=== PATIENT | female | born 1965 | race Caucasian/White ===

== ENCOUNTER 2018-10-11 20:12 | Emergency (ER) | payer MEDICARE, MEDICAID ==
[2018-10-11] MEDS ORDERED: Ondansetron 4 MG/2 ML SDV IVPUSH ONE (21:12)
[2018-10-11] MEDS ORDERED: Famotidine/Normal Saline 20 MG in Premix Bag 1 BAG IV ONE (21:12)
--- NOTE | 2018-10-11 21:14 | EDM.PDOC ---
ED HPI GENERAL MEDICAL PROBLEM - General Chief Complaint: Abdominal Pain Stated Complaint: STOMACH PAIN Time Seen by Provider: 10/11/18 21:14 Source of Information: Reports: Patient, Old Records History Limitations: Reports: No Limitations - History of Present Illness INITIAL COMMENTS - FREE TEXT/NARRATIVE: Patient presents today with concern for acute onset upper abdominal pain which started between 7 and 7:30 this evening. She is very concerned because she has a history of a bowel obstruction in February. She states that she was feeling just fine all of the rest of today, but did have some vomiting this evening shortly after arrival. She had a normal bowel movement 2 today, second one may be slightly looser than usual. She tried taking Maalox at home with no improvement. She had spaghetti and salad for supper which she made herself and her partner is not sick. No other recent food exposures. She denies fever, chills or sweats, heart racing or skipping beats, shortness of breath, change in urination, burning with urination, frequency or urgency, numbness or tingling in her hands or feet, feeling lightheaded or dizzy. She has a history of previous abdominal surgeries including cholecystectomy, appendectomy, hysterectomy, and umbilical hernia repair with mesh. Middle Abdomen Pain Score (Numeric/FACES): 10 - Related Data Allergies Allergy/AdvReac Type Severity Reaction Status Date / Time acetaminophen Allergy Cannot Verified 03/31/18 13:07 [From Darvocet-N 100] Remember amoxicillin trihydrate Allergy Vaginitis Verified 03/31/18 13:07 [From Augmentin] codeine Allergy Airway Verified 03/31/18 13:07 Tightness doxycycline Allergy Nausea and Verified 03/31/18 13:07 Vomiting furosemide [From Lasix] Allergy Rash Verified 03/31/18 13:07 ibuprofen Allergy Vomiting Verified 03/31/18 13:07 ketorolac [From Toradol] Allergy Rash Verified 03/31/18 13:07 latex Allergy Cannot Verified 03/31/18 13:07 Remember metoclopramide HCl Allergy Tachycardia Verified 03/31/18 13:07 [From Reglan] morphine Allergy Rash Verified 03/31/18 13:07 oxycodone [Oxycodone] Allergy Airway Verified 03/31/18 13:07 Tightness oxycodone HCl [From Percocet] Allergy Cannot Verified 03/31/18 13:07 Remember potassium chloride Allergy Vaginitis Verified 03/31/18 13:07 potassium clavulanate Allergy Vaginitis Verified 03/31/18 13:07 [From Augmentin] propoxyphene Allergy Nausea and Verified 03/31/18 13:07 [From Darvocet-N 100] Vomiting propoxyphene napsylate Allergy Cannot Verified 03/31/18 13:07 [From Darvocet-N 100] Remember Sulfa (Sulfonamide Allergy Rash Verified 03/31/18 13:07 Antibiotics) sulfamethoxazole Allergy Vaginitis Verified 03/31/18 13:07 [From Bactrim] sumatriptan [From Imitrex] Allergy Nausea and Verified 03/31/18 13:07 Vomiting sumatriptan succinate Allergy Nausea and Verified 03/31/18 13:07 [From Imitrex] Vomiting topiramate Allergy Cannot Verified 03/31/18 13:07 Remember tramadol Allergy Rash Verified 03/31/18 13:07 trimethoprim [From Bactrim] Allergy Vaginitis Verified 03/31/18 13:07 Home Meds: Home Meds Multivitamin [Multivitamins] 1 each PO BEDTIME 11/08/12 [History] Escitalopram [Lexapro] 10 mg PO Q48H 03/01/14 [History] Meperidine HCl [Demerol] 50 mg PO Q6H PRN 10/01/14 [History] Famotidine [Pepcid] 20 mg PO BID #30 tablet 03/02/18 [Rx] Azithromycin [Zithromax] 250 mg PO ASDIRECTED #6 tab 03/31/18 [Rx] Past Medical History HEENT History: Reports: Hard of Hearing, Other (See Below) Other HEENT History: deaf. Hearing aid to the right ear Gastrointestinal History: Reports: Bowel Obstruction, Gastritis, Other (See Below) Other Gastrointestinal History: upper abd pain. Other Genitourinary History: PT HAD BLADDER TIED (SECURED) POST HYSTERECTOMY HAND MODEL History: Reports: Musculoskeletal History: Reports: Other (See Below) Other Musculoskeletal History: HAS BEEN IN wheelchair in past / both knees repaired and doing well at this time Neurological History: Reports: Migraines Psychiatric History: Reports: Anxiety, Depression - Infectious Disease History Infectious Disease History: Reports: Chicken Pox, Measles, Mumps - Past Surgical History HEENT Surgical History: Reports: Oral Surgery GI Surgical History: Reports: Appendectomy, Cholecystectomy, Hernia Repair/Other Female Surgical History: Reports: Hysterectomy Musculoskeletal Surgical History: Reports: Arthroscopic Knee, Knee Replacement, Shoulder Surgery Social & Family History - Family History Family Medical History: Noncontributory - Tobacco Use Smoking Status *Q: Never Smoker - Caffeine Use Caffeine Use: Reports: Coffee Caffeine Use Comment: Didn't ask - Alcohol Use Alcohol Use History: No - Recreational Drug Use Recreational Drug Use: No - Living Situation & Occupation Living situation: Reports: Occupation: Disabled ED ROS GENERAL - Review of Systems Review Of Systems: ROS reveals no pertinent complaints other than HPI. ED EXAM, GENERAL - Physical Exam Exam: See Below Free Text/Narrative:: General: Alert, very pleasant no acute distress. Pupils are equal and reactive. Throat is without erythema, mucous members are moist. Neck is supple and there is no cervical adenopathy. Heart is regular rate and rhythm, lungs are clear throughout with no wheezes or crackles. Abdomen positive bowel sounds, soft, no rebound or guarding. Nontender with firm auscultation but complains of pain with palpation. Significant difference in exam when she is distracted and I do not feel any rigidity or rebound. Peripheral pulses +2 in both the upper and lower extremities, there is no lower extremity edema. Skin has no abnormal lesions or rashes. Strength is equal side to side and gait is normal. Course - Vital Signs Text/Narrative:: initial impression - viral gastroenteritis vs possible early obstruction, very benign abdominal exam. labs ordered, will start some IVF. No urine symptoms, no other complaints Last Recorded V/S: Last Vital Signs Temp 36.6 C 10/11/18 20:17 Pulse 98 10/11/18 20:17 Resp 18 10/11/18 20:17 BP 119/88 10/11/18 20:17 Pulse Ox 100 10/11/18 20:17 - Orders/Labs/Meds Orders: Active Orders 24 hr Category Date Time Status Abdomen 1V Upright [CR] Stat Exams 10/12/18 00:07 Taken Sodium Chloride 0.9% [Normal Saline] 1,000 ml Med 10/11/18 21:15 Active IV ASDIRECTED Sodium Chloride 0.9% [Saline Flush] Med 10/11/18 21:54 Active 10 ml FLUSH ACLUNCH PRN Medication Orders Sodium Chloride (Normal Saline) 1,000 mls @ 500 mls/hr IV ASDIRECTED LETICIA Last Admin: 10/11/18 21:45 Dose: 500 mls/hr Sodium Chloride (Saline Flush) 10 ml FLUSH ACLUNCH PRN PRN Reason: Keep Vein Open Last Admin: 10/11/18 22:11 Dose: 10 ml Labs: Laboratory Tests 10/11/18 10/11/18 10/11/18 Range/Units 20:45 21:26 21:26 WBC 10.8 (4.5-12.0) X10-3/uL RBC 4.55 (3.23-5.20) x10(6)uL Hgb 14.0 (11.5-15.5) g/dL Hct 42.1 (30.0-51.3) % MCV 92.4 (80-96) fL MCH 30.8 (27.7-33.6) pg MCHC 33.4 (32.2-35.4) g/dL RDW 11.6 (11.5-15.5) % Plt Count 313 (125-369) X10(3)uL MPV 8.5 (7.4-10.4) fL Neut % (Auto) 70.6 (46-82) % Lymph % (Auto) 21.3 (13-37) % [place] % (Auto) 5.6 (4-12) % Eos % (Auto) 2 (1.0-5.0) % Baso % (Auto) 1 (0-2) % Neut # (Auto) 7.6 (1.6-8.3) # Lymph # (Auto) 2.3 (0.6-5.0) # [place] # (Auto) 0.6 (0.0-1.3) # Eos # (Auto) 0.2 (0.0-0.8) # Baso # (Auto) 0.1 (0.0-0.2) # Sodium 142 (135-145) mmol/L Potassium 3.9 (3.5-5.3) mmol/L Chloride 104 D (100-110) mmol/L Carbon Dioxide 30 (21-32) mmol/L BUN 12 (7-18) mg/dL Creatinine 0.7 (0.55-1.02) mg/dL Est Cr Clr Drug Dosing 72.66 mL/min Estimated GFR (MDRD) > 60 (>60) BUN/Creatinine Ratio 17.1 (9-20) Glucose 115 (80-116) mg/dL Lactic Acid (0.4-2.2) mmol/L Calcium 10.0 (8.6-10.2) mg/dL Magnesium 1.9 (1.8-2.5) mg/dL Total Bilirubin 0.4 (0.1-1.3) mg/dL AST 16 (5-25) IU/L ALT 22 (12-36) U/L Alkaline Phosphatase 78 (56-112) IU/L Total Protein 7.3 (6.0-8.0) g/dL Albumin 4.0 (3.5-5.2) g/dL Globulin 3.3 g/dL Albumin/Globulin Ratio 1.2 Amylase 78 (25-115) U/L Urine Color Yellow (YELLOW) Urine Appearance Clear (CLEAR) Urine pH 8.0 H (5.0-6.5) Ur Specific [place] 1.015 (1.010-1.025) Urine Protein Negative (NEGATIVE) mg/dL Urine Glucose (UA) Normal (NORMAL) mg/dL Urine Ketones Negative (NEGATIVE) mg/dL Urine Occult Blood Negative (NEGATIVE) Urine Nitrite Negative (NEGATIVE) Urine Bilirubin Negative (NEGATIVE) Urine Urobilinogen Normal (NEGATIVE) mg/dL Ur Leukocyte Esterase Negative (NEGATIVE) Urine RBC 0-5 (0-5) Urine WBC 0-5 (0-5) Ur Squamous Epith Cells Few H (NS,R,O) Urine Bacteria Few H (NS) Urine Mucus Few H (NS) 10/11/18 Range/Units 21:26 WBC (4.5-12.0) X10-3/uL RBC (3.23-5.20) x10(6)uL Hgb (11.5-15.5) g/dL Hct (30.0-51.3) % MCV (80-96) fL MCH (27.7-33.6) pg MCHC (32.2-35.4) g/dL RDW (11.5-15.5) % Plt Count (125-369) X10(3)uL MPV (7.4-10.4) fL Neut % (Auto) (46-82) % Lymph % (Auto) (13-37) % [place] % (Auto) (4-12) % Eos % (Auto) (1.0-5.0) % Baso % (Auto) (0-2) % Neut # (Auto) (1.6-8.3) # Lymph # (Auto) (0.6-5.0) # [place] # (Auto) (0.0-1.3) # Eos # (Auto) (0.0-0.8) # Baso # (Auto) (0.0-0.2) # Sodium (135-145) mmol/L Potassium (3.5-5.3) mmol/L Chloride (100-110) mmol/L Carbon Dioxide (21-32) mmol/L BUN (7-18) mg/dL Creatinine (0.55-1.02) mg/dL Est Cr Clr Drug Dosing mL/min Estimated GFR (MDRD) (>60) BUN/Creatinine Ratio (9-20) Glucose (80-116) mg/dL Lactic Acid 1.4 (0.4-2.2) mmol/L Calcium (8.6-10.2) mg/dL Magnesium (1.8-2.5) mg/dL Total Bilirubin (0.1-1.3) mg/dL AST (5-25) IU/L ALT (12-36) U/L Alkaline Phosphatase (56-112) IU/L Total Protein (6.0-8.0) g/dL Albumin (3.5-5.2) g/dL Globulin g/dL Albumin/Globulin Ratio Amylase (25-115) U/L Urine Color (YELLOW) Urine Appearance (CLEAR) Urine pH (5.0-6.5) Ur Specific [place] (1.010-1.025) Urine Protein (NEGATIVE) mg/dL Urine Glucose (UA) (NORMAL) mg/dL Urine Ketones (NEGATIVE) mg/dL Urine Occult Blood (NEGATIVE) Urine Nitrite (NEGATIVE) Urine Bilirubin (NEGATIVE) Urine Urobilinogen (NEGATIVE) mg/dL Ur Leukocyte Esterase (NEGATIVE) Urine RBC (0-5) Urine WBC (0-5) Ur Squamous Epith Cells (NS,R,O) Urine Bacteria (NS) Urine Mucus (NS) Meds: Medications Generic Name Dose Route Start Last Admin Trade Name Freq PRN Reason Stop Dose Admin Sodium Chloride 1,000 mls @ 500 mls/hr 10/11/18 21:15 10/11/18 21:45 Normal Saline IV 500 mls/hr ASDIRECTED LETICIA Administration Sodium Chloride 10 ml 10/11/18 21:54 10/11/18 22:11 Saline Flush FLUSH 10 ml ACLUNCH PRN Administration Keep Vein Open Discontinued Medications Generic Name Dose Route Start Last Admin Trade Name Steven PRN Reason Stop Dose Admin Famotidine 20 mg/ Premix 50 mls @ 200 mls/hr 10/11/18 21:12 10/11/18 22:04 IV 10/11/18 21:13 200 mls/hr ONETIME ONE Administration Ondansetron HCl 4 mg 10/11/18 21:12 10/11/18 22:04 Zofran IVPUSH 10/11/18 21:13 4 mg ONETIME ONE Administration - Re-Assessments/Exams Free Text/Narrative Re-Assessment/Exam: 10/12/18 2245 labs reviewed and all negative. Patient still c/o pain but asked for something to drink -- will try some ice water repeat abdominal exam - very soft, basically nontender when distracted, normal bowel sounds. Medical records reviewed, patient was admitted in February with concerns for partial small bowel obstruction, however it spontaneously resolved and was followed by surgery who notes that it may have actually been partially symptoms from gastroenteritis. She does have a history of previous abdominal surgeries including a an umbilical hernia repair, laparoscopic cholecystectomy, hysterectomy. Free Text/Narrative Re-Assessment/Exam: 10/12/18 2330 IV infiltrated, will stop as patient does not appear dehydrated repeat exam - still soft, nontender if distracted, very much complains of pain if attention is on exam. Also able to sit up without difficulty discussed possible imaging - will get KUB Free Text/Narrative Re-Assessment/Exam: 10/12/18 01:00 KUB does not show obstructive gas pattern. Patient had complained again of pain , but is sitting up in bed, talking, grimaces when lies down, but then able to do partial situp without any difficulty. Abdomen still completely soft. No hernia palpable around surgical scar. no additional vomiting, has tolerated water and ice. Discussed discharge home and s/s for return to ER if worsens. She states she also still has some demerol at home and could try that. see discharge instructions Departure - Departure Time of Disposition: 01:03 Disposition: Home, Self-Care 01 Condition: Good Clinical Impression: Gastroenteritis, Vomiting, Diarrhea - Discharge Information *PRESCRIPTION DRUG MONITORING PROGRAM REVIEWED*: Yes *COPY OF PRESCRIPTION DRUG MONITORING REPORT IN PATIENT RUBENS: No Referrals: Jake Beatty MD [Primary Care Provider] - Forms: ED Department Discharge Additional Instructions: rest and gentle activity (walking) tomorrow recommend clear liquid diet tomorrow, if you get hungry you may try something more solid but still very gentle on stomach such as banana or rice can use pain meds as prescribed, tylenol, or warm pack if worsening pain, ongoing vomiting, feeling lightheaded or like you might pass out when you stand up, then see physician - My Orders Last 24 Hours: My Active Orders 10/11/18 21:15 Sodium Chloride 0.9% [Normal Saline] 1,000 ml IV ASDIRECTED 10/11/18 21:54 Sodium Chloride 0.9% [Saline Flush] 10 ml FLUSH ACLUNCH PRN 10/12/18 00:07 Abdomen 1V Upright [CR] Stat - Assessment/Plan Last 24 Hours: My Active Orders 10/11/18 21:15 Sodium Chloride 0.9% [Normal Saline] 1,000 ml IV ASDIRECTED 10/11/18 21:54 Sodium Chloride 0.9% [Saline Flush] 10 ml FLUSH ACLUNCH PRN 10/12/18 00:07 Abdomen 1V Upright [CR] Stat
[2018-10-11] MEDS ORDERED: Sodium Chloride 0.9% 1,000 ML IV SCH (21:15)
[2018-10-11] MEDS ORDERED: Sodium Chloride 0.9% 10 ML Syringe FLUSH PRN (21:54)
[2018-10-12 03:20] VITALS: BP 108/56; PULSE 88
--- NOTE | 2018-10-14 11:43 | CR ---
INDICATION: Question bowel obstruction. ABDOMEN: Two upright views of the abdomen were obtained 10/12/18 and compared with 02/28/18, revealing evidence of previous cholecystectomy with clips in the area of the cystic duct. Evidence of previous hernia surgery is noted in the lower middle abdomen. The pattern of gas and feces is nonspecific without evidence of free air or obstruction. No organomegaly, mass lesions, or nonvascular pathologic calcifications were identified. Nasogastric tube is no longer present - no overlying tubes are seen at this time. IMPRESSION: Nonacute postsurgical abdomen. MTDD
== END 2018-10-12 01:10 | disposition home or self-care (01) ==
LOC: FB.ED 20:12
DX: K52.9 Noninfective gastroenteritis and colitis, unspecified (principal); F41.9 Anxiety disorder, unspecified; F32.9 Major depressive disorder, single episode, unspecified; Z91.040 Latex allergy status; Z88.8 Allergy status to other drugs, medicaments and biological substances; Z88.2 Allergy status to sulfonamides; Z88.5 Allergy status to narcotic agent; Z88.6 Allergy status to analgesic agent; Z79.899 Other long term (current) drug therapy; Z90.49 Acquired absence of other specified parts of digestive tract; Z90.710 Acquired absence of both cervix and uterus; Z88.1 Allergy status to other antibiotic agents
CPT/HCPCS: 36415; 74018; 80053; 81001; 82150; 83605; 83735; 85025; 96365; 96375; 99284; J2405; J7030; 99283

== ENCOUNTER 2019-11-11 04:24 | Emergency (ER) | payer MEDICARE, MEDICAID ==
[2019-11-11] MEDS ORDERED: hydrOXYzine HCl 50 MG/ML SDV IM ONE (04:41)
[2019-11-11] MEDS ORDERED: Diazepam 5 MG Tab PO ONE (05:13)
[2019-11-11] MEDS ORDERED: Zolpidem 10 MG Tab PO ONE (05:13)
--- NOTE | 2019-11-11 05:21 | EDM.PDOC ---
ED HPI GENERAL MEDICAL PROBLEM - General Chief Complaint: General Stated Complaint: Anxiety, Chest Tightness Time Seen by Provider: 11/11/19 04:45 Source of Information: Reports: Patient History Limitations: Reports: No Limitations - History of Present Illness INITIAL COMMENTS - FREE TEXT/NARRATIVE: Patient presented to the ED because of insomnia, anxiety, and chest tightness. She said 2 of her sisters have cancer and she is under a lot of stress. - Related Data Allergies Allergy/AdvReac Type Severity Reaction Status Date / Time acetaminophen Allergy Cannot Verified 11/11/19 05:09 [From Darvocet-N 100] Remember amoxicillin trihydrate Allergy Vaginitis Verified 11/11/19 05:09 [From Augmentin] codeine Allergy Airway Verified 11/11/19 05:09 Tightness doxycycline Allergy Nausea and Verified 11/11/19 05:09 Vomiting furosemide [From Lasix] Allergy Rash Verified 11/11/19 05:09 ibuprofen Allergy Vomiting Verified 11/11/19 05:09 ketorolac [From Toradol] Allergy Rash Verified 11/11/19 05:09 latex Allergy Cannot Verified 11/11/19 05:09 Remember metoclopramide HCl Allergy Tachycardia Verified 11/11/19 05:09 [From Reglan] morphine Allergy Rash Verified 11/11/19 05:09 oxycodone [Oxycodone] Allergy Airway Verified 11/11/19 05:09 Tightness oxycodone HCl [From Percocet] Allergy Cannot Verified 11/11/19 05:09 Remember potassium chloride Allergy Vaginitis Verified 11/11/19 05:09 potassium clavulanate Allergy Vaginitis Verified 11/11/19 05:09 [From Augmentin] propoxyphene Allergy Nausea and Verified 11/11/19 05:09 [From Darvocet-N 100] Vomiting propoxyphene napsylate Allergy Cannot Verified 11/11/19 05:09 [From Darvocet-N 100] Remember Sulfa (Sulfonamide Allergy Rash Verified 11/11/19 05:09 Antibiotics) sulfamethoxazole Allergy Vaginitis Verified 11/11/19 05:09 [From Bactrim] sumatriptan [From Imitrex] Allergy Nausea and Verified 11/11/19 05:09 Vomiting sumatriptan succinate Allergy Nausea and Verified 11/11/19 05:09 [From Imitrex] Vomiting topiramate Allergy Cannot Verified 11/11/19 05:09 Remember tramadol Allergy Rash Verified 11/11/19 05:09 trimethoprim [From Bactrim] Allergy Vaginitis Verified 11/11/19 05:09 Home Meds: Home Meds Multivitamin [Multivitamins] 1 each PO BEDTIME 11/08/12 [History] Escitalopram [Lexapro] 5 mg PO Q48H 03/01/14 [History] Omeprazole 20 mg PO DAILY 11/11/19 [History] Zolpidem [Ambien] 5 mg PO BEDTIME PRN #10 tab 11/11/19 [Rx] atorvaSTATin [Lipitor] 10 mg PO DAILY 11/11/19 [History] Past Medical History HEENT History: Reports: Hard of Hearing, Other (See Below) Other HEENT History: deaf. Hearing aid to the right ear Gastrointestinal History: Reports: Bowel Obstruction, Gastritis, Other (See Below) Other Gastrointestinal History: upper abd pain. Other Genitourinary History: PT HAD BLADDER TIED (SECURED) POST HYSTERECTOMY MANAGER INVESTIGATIONS History: Reports: Musculoskeletal History: Reports: Other (See Below) Other Musculoskeletal History: HAS BEEN IN wheelchair in past / both knees repaired and doing well at this time Neurological History: Reports: Migraines Psychiatric History: Reports: Anxiety, Depression - Infectious Disease History Infectious Disease History: Reports: Chicken Pox, Measles, Mumps - Past Surgical History HEENT Surgical History: Reports: Oral Surgery GI Surgical History: Reports: Appendectomy, Cholecystectomy, Hernia Repair/Other Female Surgical History: Reports: Hysterectomy Musculoskeletal Surgical History: Reports: Arthroscopic Knee, Knee Replacement, Shoulder Surgery Social & Family History - Family History Family Medical History: Noncontributory - Caffeine Use Caffeine Use: Reports: Coffee Caffeine Use Comment: Didn't ask - Living Situation & Occupation Living situation: Reports: Occupation: Disabled ED ROS GENERAL - Review of Systems Review Of Systems: See Below Constitutional: Reports: No Symptoms HEENT: Reports: No Symptoms Respiratory: Reports: No Symptoms Cardiovascular: Reports: Chest Pain Endocrine: Reports: No Symptoms GI/Abdominal: Reports: No Symptoms : Reports: No Symptoms Musculoskeletal: Reports: No Symptoms Skin: Reports: No Symptoms Psychiatric: Reports: Anxiety Hematologic/Lymphatic: Reports: No Symptoms Immunologic: Reports: No Symptoms ED EXAM, GENERAL - Physical Exam Exam: See Below Exam Limited By: No Limitations General Appearance: Alert, No Apparent Distress Ears: Normal External Exam, Normal Canal, Hearing Grossly Normal Nose: Normal Inspection, Normal Mucosa Throat/Mouth: Normal Inspection, Normal Lips Head: Atraumatic, Normocephalic Neck: Normal Inspection, Supple, Non-Tender, Full Range of Motion Respiratory/Chest: No Respiratory Distress, Lungs Clear, Normal Breath Sounds Cardiovascular: Normal Peripheral Pulses, Regular Rate, Rhythm GI/Abdominal: Normal Bowel Sounds, Soft, Non-Tender, No Organomegaly Back Exam: Normal Inspection, Full Range of Motion Course - Vital Signs Text/Narrative:: EKG-NSR w/some PVC's Valium 5 mg PO x1 Zolpidem 5 mg po x1 Last Recorded V/S: Last Vital Signs Temp 36.6 C 11/11/19 04:35 Pulse 54 L 11/11/19 04:35 Resp 18 11/11/19 04:35 BP 123/69 11/11/19 04:35 Pulse Ox 100 11/11/19 04:35 - Orders/Labs/Meds Orders: Active Orders 24 hr Category Date Time Status EKG Documentation Completion [RC] ASDIRECTED Care 11/11/19 05:16 Ordered EKG 12 Lead [EK] Routine Ther 11/11/19 05:15 Ordered Meds: Medications Discontinued Medications Generic Name Dose Route Start Last Admin Trade Name Steven PRN Reason Stop Dose Admin Diazepam 5 mg 11/11/19 05:13 Valium. PO 11/11/19 05:14 ONETIME ONE Hydroxyzine HCl 50 mg 11/11/19 04:41 11/11/19 04:45 Vistaril IM 11/11/19 04:42 50 mg ONETIME ONE Administration Zolpidem Tartrate 5 mg 11/11/19 05:13 Ambien PO 11/11/19 05:14 ONETIME ONE Departure - Departure Time of Disposition: 05:30 Disposition: Home, Self-Care 01 Condition: Good (anxiety reac) Clinical Impression: Anxiety in acute stress reaction, Insomnia - Discharge Information Prescriptions: Zolpidem [Ambien] 5 mg PO BEDTIME PRN #10 tab PRN Reason: Sleep Referrals: Jake Beatty MD [Primary Care Provider] - Forms: ED Department Discharge Additional Instructions: Please read discharge instructions on anxiety and insomnia Take Zolpidem 5 mg at bet dime as needed for sleep Vistaril 50 mg every 8 hours as needed for anxiety. Follow up as needed Sepsis Event Note (ED) - Evaluation Sepsis Screening Result: No Definite Risk - Focused Exam Vital Signs: Vital Signs Temp Pulse Resp BP Pulse Ox 11/11/19 04:35 36.6 C 54 L 18 123/69 100 - My Orders Last 24 Hours: My Active Orders 11/11/19 05:15 EKG 12 Lead [EK] Routine 11/11/19 05:16 EKG Documentation Completion [RC] ASDIRECTED - Assessment/Plan Last 24 Hours: My Active Orders 11/11/19 05:15 EKG 12 Lead [EK] Routine 11/11/19 05:16 EKG Documentation Completion [RC] ASDIRECTED
[2019-11-11 07:48] VITALS: BP 120/76; PULSE 84
== END 2019-11-11 05:55 | disposition home or self-care (01) ==
LOC: FB.ED 04:24
DX: F41.1 Generalized anxiety disorder (principal); F43.0 Acute stress reaction; G47.00 Insomnia, unspecified; F32.9 Major depressive disorder, single episode, unspecified; Z88.5 Allergy status to narcotic agent; Z88.1 Allergy status to other antibiotic agents; Z88.8 Allergy status to other drugs, medicaments and biological substances; Z91.040 Latex allergy status; Z88.2 Allergy status to sulfonamides; Z79.899 Other long term (current) drug therapy
CPT/HCPCS: 93005; 96372; 99284; A9270; J3410

== ENCOUNTER 2020-01-18 17:29 | Emergency (ER) | payer MEDICARE, MEDICAID ==
--- NOTE | 2020-01-18 17:55 | EDM.PDOC ---
ED HPI GENERAL MEDICAL PROBLEM - General Stated Complaint: CUT A FINGER ON RT HAND Time Seen by Provider: 01/18/20 17:35 Source of Information: Reports: Patient History Limitations: Reports: No Limitations - History of Present Illness INITIAL COMMENTS - FREE TEXT/NARRATIVE: c/o finger lac cut on fingerpad of R index finger last Td 2016 here with not working, says she does not type - Related Data Allergies Allergy/AdvReac Type Severity Reaction Status Date / Time acetaminophen Allergy Cannot Verified 11/11/19 05:09 [From Darvocet-N 100] Remember amoxicillin trihydrate Allergy Vaginitis Verified 11/11/19 05:09 [From Augmentin] codeine Allergy Airway Verified 11/11/19 05:09 Tightness doxycycline Allergy Nausea and Verified 11/11/19 05:09 Vomiting furosemide [From Lasix] Allergy Rash Verified 11/11/19 05:09 ibuprofen Allergy Vomiting Verified 11/11/19 05:09 ketorolac [From Toradol] Allergy Rash Verified 11/11/19 05:09 latex Allergy Cannot Verified 11/11/19 05:09 Remember metoclopramide HCl Allergy Tachycardia Verified 11/11/19 05:09 [From Reglan] morphine Allergy Rash Verified 11/11/19 05:09 oxycodone [Oxycodone] Allergy Airway Verified 11/11/19 05:09 Tightness oxycodone HCl [From Percocet] Allergy Cannot Verified 11/11/19 05:09 Remember potassium chloride Allergy Vaginitis Verified 11/11/19 05:09 potassium clavulanate Allergy Vaginitis Verified 11/11/19 05:09 [From Augmentin] propoxyphene Allergy Nausea and Verified 11/11/19 05:09 [From Darvocet-N 100] Vomiting propoxyphene napsylate Allergy Cannot Verified 11/11/19 05:09 [From Darvocet-N 100] Remember Sulfa (Sulfonamide Allergy Rash Verified 11/11/19 05:09 Antibiotics) sulfamethoxazole Allergy Vaginitis Verified 11/11/19 05:09 [From Bactrim] sumatriptan [From Imitrex] Allergy Nausea and Verified 11/11/19 05:09 Vomiting sumatriptan succinate Allergy Nausea and Verified 11/11/19 05:09 [From Imitrex] Vomiting topiramate Allergy Cannot Verified 11/11/19 05:09 Remember tramadol Allergy Rash Verified 11/11/19 05:09 trimethoprim [From Bactrim] Allergy Vaginitis Verified 11/11/19 05:09 Home Meds: Home Meds Multivitamin [Multivitamins] 1 each PO BEDTIME 11/08/12 [History] Escitalopram [Lexapro] 5 mg PO Q48H 03/01/14 [History] Omeprazole 20 mg PO DAILY 11/11/19 [History] Zolpidem [Ambien] 5 mg PO BEDTIME PRN #10 tab 11/11/19 [Rx] atorvaSTATin [Lipitor] 10 mg PO DAILY 11/11/19 [History] hydrOXYzine pamoate [Vistaril] 50 mg PO Q8H #30 cap 11/11/19 [Rx] Past Medical History HEENT History: Reports: Hard of Hearing, Other (See Below) Other HEENT History: deaf. Hearing aid to the right ear Gastrointestinal History: Reports: Bowel Obstruction, Gastritis, Other (See Below) Other Gastrointestinal History: upper abd pain. 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: Musculoskeletal History: Reports: Other (See Below) Other Musculoskeletal History: HAS BEEN IN wheelchair in past / both knees rep aired and doing well at this time Neurological History: Reports: Migraines Psychiatric History: Reports: Anxiety, Depression - Infectious Disease History Infectious Disease History: Reports: Chicken Pox, Measles, Mumps - Past Surgical History HEENT Surgical History: Reports: Oral Surgery GI Surgical History: Reports: Appendectomy, Cholecystectomy, Hernia Repair/Other Female Surgical History: Reports: Hysterectomy Musculoskeletal Surgical History: Reports: Arthroscopic Knee, Knee Replacement, Shoulder Surgery Social & Family History - Family History Family Medical History: No Pertinent Family History - Caffeine Use Caffeine Use: Reports: Coffee Caffeine Use Comment: Didn't ask - Living Situation & Occupation Living situation: Reports: Occupation: Disabled ED ROS GENERAL - Review of Systems Review Of Systems: See Below Constitutional: Reports: No Symptoms HEENT: Reports: No Symptoms Respiratory: Reports: No Symptoms Cardiovascular: Reports: No Symptoms Endocrine: Reports: No Symptoms GI/Abdominal: Reports: No Symptoms : Reports: No Symptoms Musculoskeletal: Reports: No Symptoms Skin: Reports: Wound Neurological: Reports: No Symptoms Psychiatric: Reports: No Symptoms Hematologic/Lymphatic: Reports: No Symptoms Immunologic: Reports: No Symptoms ED EXAM, SKIN/RASH Exam: See Below Exam Limited By: Other (hearing impaired, lip reads well, as does her ) General Appearance: Alert, WD/WN, No Apparent Distress Respiratory/Chest: No Respiratory Distress Cardiovascular: Regular Rate, Rhythm Extremities: Normal Inspection, Normal Range of Motion Neurological: Alert, Oriented, CN II-XII Intact, Normal Cognition, No Motor/Sensory Deficits Skin: Warm, Dry, Other (there is a curviliear L-shaped superficial lac of the fingerpad good apposition of margins on presentation without active bleeding, vertical arm is ~8 mm and horizontal apex is 5 mm, 13 mm total, soaked, direct pressure placed for 5 min, then 1/4" SS x 4 and Bandaid x 2 used to position skin in original position, m/s intact) Course - Re-Assessments/Exams Free Text/Narrative Re-Assessment/Exam: 01/18/20 18:15 last Td 3y ago SS applied without difficulty and without bleeding, should heal well, no fb Departure - Departure Time of Disposition: 18:13 Disposition: Home, Self-Care 01 Condition: Good Clinical Impression: Finger laceration Qualifiers: Encounter type: initial encounter Finger: index finger Damage to nail status: without damage Foreign body presence: without foreign body Laterality: right Qualified Code(s): S61.210A - Laceration without foreign body of right index finger without damage to nail, initial encounter - Discharge Information *PRESCRIPTION DRUG MONITORING PROGRAM REVIEWED*: Not Applicable *COPY OF PRESCRIPTION DRUG MONITORING REPORT IN PATIENT RUBENS: Not Applicable Instructions: Nonsutured Laceration Care Referrals: PCP,None [Primary Care Provider] - Additional Instructions: Keep clean and dry for 5 days. May put a sandwich bag around the finger with a rubber band when taking a shower. Avoid putting pressure on the fingertip for 5 days. May take Aleve one tab tonight as needed for discomfort. Change the outer bandaid in 2-3 days if needed. See your doctor if there are additional questions or concerns.
[2020-01-18 19:40] VITALS: BP 118/82; PULSE 83
== END 2020-01-18 18:34 | disposition home or self-care (01) ==
LOC: FB.ED 17:29
DX: S61.210A Laceration without foreign body of right index finger without damage to nail, initial encounter (principal); F41.9 Anxiety disorder, unspecified; F32.9 Major depressive disorder, single episode, unspecified; Z88.6 Allergy status to analgesic agent; Z88.1 Allergy status to other antibiotic agents; Z88.5 Allergy status to narcotic agent; Z91.040 Latex allergy status; Z88.8 Allergy status to other drugs, medicaments and biological substances; Z88.2 Allergy status to sulfonamides; Z79.899 Other long term (current) drug therapy; W26.9XXA Contact with unspecified sharp object(s), initial encounter
CPT/HCPCS: 99282

== ENCOUNTER 2020-10-23 03:43 | Emergency (ER) | payer MEDICARE, MEDICAID ==
--- NOTE | 2020-10-23 04:07 | EDM.PDOC ---
ED HPI GENERAL MEDICAL PROBLEM - General Stated Complaint: ANXIETY Time Seen by Provider: 10/23/20 04:00 Source of Information: Reports: Patient History Limitations: Reports: No Limitations - History of Present Illness INITIAL COMMENTS - FREE TEXT/NARRATIVE: 55-year-old female who presents to the emergency department complaining of severe anxiety he states that beginning at approximately 8 PM last night begin to feel very uneasy anxious and the symptoms have progressively worsened. She was not able sleep tonight at 1:30 AM she began to feel very anxious and was crying and could not overcome this. The symptoms have persisted and then that caused her to present to the emergency department for evaluation. He does have problems with anxiety and she had surgery on her right shoulder on 09/30/2020 and was placed on a fentanyl patch for pain control. However, the fentanyl patch was discontinued and her last time with it was yesterday during the day. She reports no nausea or vomiting. She has been breathing normally. She had not and taking her anxiety medications because she had been advised not to these medications while she was on the fentanyl patch. She really has no other symptoms besides the severe and crushing anxiety she denies any chest pain. She denies any nausea or vomiting no difficulty breathing. There are no other associated signs or symptoms. There are no other modifying factors. 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: Other (see below) (Nothing) - Related Data Allergies Allergy/AdvReac Type Severity Reaction Status Date / Time acetaminophen Allergy Cannot Verified 01/18/20 20:04 [From Darvocet-N 100] Remember amoxicillin trihydrate Allergy Vaginitis Verified 01/18/20 20:04 [From Augmentin] codeine Allergy Airway Verified 01/18/20 20:04 Tightness doxycycline Allergy Nausea and Verified 01/18/20 20:04 Vomiting furosemide [From Lasix] Allergy Rash Verified 01/18/20 20:04 ibuprofen Allergy Vomiting Verified 01/18/20 20:04 ketorolac [From Toradol] Allergy Rash Verified 01/18/20 20:04 latex Allergy Cannot Verified 01/18/20 20:04 Remember metoclopramide HCl Allergy Tachycardia Verified 01/18/20 20:04 [From Reglan] morphine Allergy Rash Verified 01/18/20 20:04 oxycodone [Oxycodone] Allergy Airway Verified 01/18/20 20:04 Tightness oxycodone HCl [From Percocet] Allergy Cannot Verified 01/18/20 20:04 Remember potassium chloride Allergy Vaginitis Verified 01/18/20 20:04 potassium clavulanate Allergy Vaginitis Verified 01/18/20 20:04 [From Augmentin] propoxyphene Allergy Nausea and Verified 01/18/20 20:04 [From Darvocet-N 100] Vomiting propoxyphene napsylate Allergy Cannot Verified 01/18/20 20:04 [From Darvocet-N 100] Remember Sulfa (Sulfonamide Allergy Rash Verified 01/18/20 20:04 Antibiotics) sulfamethoxazole Allergy Vaginitis Verified 01/18/20 20:04 [From Bactrim] sumatriptan [From Imitrex] Allergy Nausea and Verified 01/18/20 20:04 Vomiting sumatriptan succinate Allergy Nausea and Verified 01/18/20 20:04 [From Imitrex] Vomiting topiramate Allergy Cannot Verified 01/18/20 20:04 Remember tramadol Allergy Rash Verified 01/18/20 20:04 trimethoprim [From Bactrim] Allergy Vaginitis Verified 01/18/20 20:04 Home Meds: Home Meds Multivitamin [Multivitamins] 1 each PO BEDTIME 11/08/12 [History] Escitalopram [Lexapro] 10 mg PO DAILY 03/01/14 [History] Omeprazole 20 mg PO DAILY 11/11/19 [History] Zolpidem [Ambien] 5 mg PO BEDTIME PRN #10 tab 11/11/19 [Rx] atorvaSTATin [Lipitor] 10 mg PO DAILY 11/11/19 [History] hydrOXYzine pamoate [Vistaril] 50 mg PO Q8H #30 cap 11/11/19 [Rx] LORazepam [Lorazepam] 1 mg QID 01/18/20 [History] Past Medical History HEENT History: Reports: Hard of Hearing, Other (See Below) Other HEENT History: deaf. Hearing aid to the right ear Gastrointestinal History: Reports: Bowel Obstruction, Gastritis, Other (See Below) Other Gastrointestinal History: upper abd pain. Other Genitourinary History: PT HAD BLADDER TIED (SECURED) POST HYSTERECTOMY Musculoskeletal History: Reports: Other (See Below) Other Musculoskeletal History: HAS BEEN IN wheelchair in past / both knees repaired and doing well at this time Neurological History: Reports: Migraines Psychiatric History: Reports: Anxiety, Depression, Panic Attack - Infectious Disease History Infectious Disease History: Reports: Chicken Pox, Measles, Mumps - Past Surgical History HEENT Surgical History: Reports: Oral Surgery GI Surgical History: Reports: Appendectomy, Cholecystectomy, Hernia Repair/Other Female Surgical History: Reports: Hysterectomy Musculoskeletal Surgical History: Reports: Arthroscopic Knee, Knee Replacement, Shoulder Surgery Social & Family History - Tobacco Use Tobacco Use Status *Q: Never Tobacco User - Caffeine Use Caffeine Use: Reports: Coffee Caffeine Use Comment: Didn't ask - Alcohol Use Alcohol Use History: No - Living Situation & Occupation Living situation: Reports: Occupation: Disabled ED ROS GENERAL - Review of Systems Review Of Systems: See Below Constitutional: Denies: Fever, Chills HEENT: Denies: Throat Swelling, Vision Change Respiratory: Denies: Shortness of Breath, Cough Cardiovascular: Denies: Chest Pain, Palpitations GI/Abdominal: Denies: Nausea, Vomiting : Denies: Dysuria, Frequency Musculoskeletal: Denies: Neck Pain, Back Pain Skin: Reports: Diaphoresis. Denies: Rash Neurological: Denies: Dizziness, Headache Psychiatric: Reports: Anxiety Hematologic/Lymphatic: Denies: Easy Bleeding, Easy Bruising ED EXAM, GENERAL - Physical Exam Exam: See Below Exam Limited By: No Limitations General Appearance: Alert, WD/WN, Anxious, Moderate Distress Eye Exam: Bilateral Eye: EOMI, Normal Inspection, PERRL Ears: Normal External Exam, Hearing Grossly Normal Ear Exam: Bilateral Ear: Auricle Normal Nose: Normal Inspection, Normal Mucosa, No Blood Throat/Mouth: Normal Inspection, Normal Voice, No Airway Compromise Head: Atraumatic, Normocephalic Neck: Normal Inspection, Supple, Non-Tender, Full Range of Motion Respiratory/Chest: No Respiratory Distress, Lungs Clear, Normal Breath Sounds, No Accessory Muscle Use, Chest Non-Tender Cardiovascular: Normal Peripheral Pulses, Regular Rate, Rhythm, No Murmur Peripheral Pulses: 2+: Radial (L), Radial (R), Dorsalis Pedis (L), Dorsalis Pedis (R) GI/Abdominal: Normal Bowel Sounds, Soft, Non-Tender, No Organomegaly Back Exam: Normal Inspection, Full Range of Motion Extremities: Non-Tender, No Pedal Edema, Normal Capillary Refill Neurological: Alert, Oriented, Normal Cognition, No Motor/Sensory Deficits, Other (Hard of hearing, chronic) Psychiatric: Anxious Course - Vital Signs Last Recorded V/S: Last Vital Signs Temp 36.5 C 10/23/20 04:15 Pulse 81 10/23/20 04:15 Resp 16 10/23/20 04:15 BP 128/74 10/23/20 04:15 Pulse Ox 98 10/23/20 04:15 - Orders/Labs/Meds Meds: Medications Discontinued Medications Generic Name Dose Route Start Last Admin Trade Name Stevne PRN Reason Stop Dose Admin Lorazepam 1 mg 10/23/20 04:22 10/23/20 04:32 Lorazepam 2 Mg/Ml Sdv IM 10/23/20 04:23 1 mg ONETIME ONE Administration - Re-Assessments/Exams Free Text/Narrative Re-Assessment/Exam: 10/23/20 04:20: As was stated above, the patient does appear to be having some withdrawal after the fentanyl was discontinued and she is quite anxious. There are no other problems apparent. The patient will be given Ativan 1 mg IM and she has anxiety medications at home and she is to restart those as per directions from her primary provider. Departure - Departure Time of Disposition: 04:30 Disposition: Home, Self-Care 01 Condition: Good Clinical Impression: Anxiety, Opiate withdrawal - Discharge Information Instructions: Managing Anxiety, Adult, Opioid Withdrawal Referrals: Jake Beatty MD [Primary Care Provider] - Additional Instructions: Your anxiety is at least in part due to your stopping of the fentanyl patches and some opioid withdrawal from doing this. You should restart your medications that you have for anxiety prescribed by your primary provider. Make sure that you drink plenty of fluids. Follow-up with your primary provider about this next week. The emergency department for chest pain, trouble breathing, unrelenting vomiting or any other concerning signs or symptoms. Sepsis Event Note (ED) - Focused Exam Vital Signs: Vital Signs Temp Pulse Resp BP Pulse Ox 10/23/20 04:15 36.5 C 81 16 128/74 98
[2020-10-23] MEDS ORDERED: LORazepam 2 MG/ML SDV IM ONE (04:22)
[2020-10-23 04:24] VITALS: BP 128/74; PULSE 81
== END 2020-10-23 05:15 | disposition home or self-care (01) ==
LOC: FB.ED 03:43
DX: F41.9 Anxiety disorder, unspecified (principal); F11.23 Opioid dependence with withdrawal; Z88.0 Allergy status to penicillin; Z88.1 Allergy status to other antibiotic agents; Z88.2 Allergy status to sulfonamides; Z88.5 Allergy status to narcotic agent; Z91.040 Latex allergy status; Z88.6 Allergy status to analgesic agent
CPT/HCPCS: 96372; 99282; J2060

== ENCOUNTER 2020-10-25 11:00 | Emergency (ER) | payer MEDICARE, MEDICAID ==
[2020-10-25] MEDS ORDERED: Diazepam 5 MG Tab PO STA (11:13)
--- NOTE | 2020-10-25 11:19 | EDM.PDOCBH ---
ED HPI GENERAL MEDICAL PROBLEM - General Stated Complaint: PYSCH Time Seen by Provider: 10/25/20 11:05 Source of Information: Reports: Patient History Limitations: Reports: No Limitations - History of Present Illness INITIAL COMMENTS - FREE TEXT/NARRATIVE: Patient presented to the ED because of an anxiety attack She said she has not been able to sleep for 3 days because her sister . She was prescribed Valium . She also c/o nausea but no vomiting. - Related Data Allergies Allergy/AdvReac Type Severity Reaction Status Date / Time acetaminophen Allergy Cannot Verified 10/26/20 08:18 [From Darvocet-N 100] Remember amoxicillin trihydrate Allergy Vaginitis Verified 10/26/20 08:18 [From Augmentin] codeine Allergy Airway Verified 10/26/20 08:18 Tightness doxycycline Allergy Nausea and Verified 10/26/20 08:18 Vomiting furosemide [From Lasix] Allergy Rash Verified 10/26/20 08:18 ibuprofen Allergy Vomiting Verified 10/26/20 08:18 ketorolac [From Toradol] Allergy Rash Verified 10/26/20 08:18 latex Allergy Cannot Verified 10/26/20 08:18 Remember metoclopramide HCl Allergy Tachycardia Verified 10/26/20 08:18 [From Reglan] morphine Allergy Rash Verified 10/26/20 08:18 oxycodone [Oxycodone] Allergy Airway Verified 10/26/20 08:18 Tightness oxycodone HCl [From Percocet] Allergy Cannot Verified 10/26/20 08:18 Remember potassium chloride Allergy Vaginitis Verified 10/26/20 08:18 potassium clavulanate Allergy Vaginitis Verified 10/26/20 08:18 [From Augmentin] propoxyphene Allergy Nausea and Verified 10/26/20 08:18 [From Darvocet-N 100] Vomiting propoxyphene napsylate Allergy Cannot Verified 10/26/20 08:18 [From Darvocet-N 100] Remember Sulfa (Sulfonamide Allergy Rash Verified 10/26/20 08:18 Antibiotics) sulfamethoxazole Allergy Vaginitis Verified 10/26/20 08:18 [From Bactrim] sumatriptan [From Imitrex] Allergy Nausea and Verified 10/26/20 08:18 Vomiting sumatriptan succinate Allergy Nausea and Verified 10/26/20 08:18 [From Imitrex] Vomiting topiramate Allergy Cannot Verified 10/26/20 08:18 Remember tramadol Allergy Rash Verified 10/26/20 08:18 trimethoprim [From Bactrim] Allergy Vaginitis Verified 10/26/20 08:18 CT dye Allergy Nausea and Uncoded 10/26/20 08:19 Vomiting, Headache Home Meds: Home Meds Multivitamin [Multivitamins] 1 each PO DAILY 11/08/12 [History] Escitalopram [Lexapro] 5 - 10 mg PO ASDIRECTED 03/01/14 [History] Omeprazole 20 mg PO DAILY 11/11/19 [History] Zolpidem [Ambien] 5 mg PO BEDTIME PRN #10 tab 11/11/19 [Rx] hydrOXYzine pamoate [Vistaril] 25 mg PO Q6H PRN 10/26/20 [History] Past Medical History HEENT History: Reports: Hard of Hearing, Other (See Below) Other HEENT History: deaf. Hearing aid to the right ear Gastrointestinal History: Reports: Bowel Obstruction, Gastritis, Other (See Below) Other Gastrointestinal History: upper abd pain. Other Genitourinary History: PT HAD BLADDER TIED (SECURED) POST HYSTERECTOMY [employer] History: Reports: Musculoskeletal History: Reports: Other (See Below) Other Musculoskeletal History: HAS BEEN IN wheelchair in past / both knees repaired and doing well at this time Neurological History: Reports: Migraines Psychiatric History: Reports: Anxiety, Depression, Panic Attack - Infectious Disease History Infectious Disease History: Reports: Chicken Pox, Measles, Mumps - Past Surgical History HEENT Surgical History: Reports: Oral Surgery GI Surgical History: Reports: Appendectomy, Cholecystectomy, Hernia Repair/Other Female Surgical History: Reports: Hysterectomy Musculoskeletal Surgical History: Reports: Arthroscopic Knee, Knee Replacement, Shoulder Surgery Social & Family History - Family History Family Medical History: No Pertinent Family History - Caffeine Use Caffeine Use: Reports: Coffee Caffeine Use Comment: Didn't ask - Living Situation & Occupation Living situation: Reports: Occupation: Disabled ED ROS GENERAL - Review of Systems Review Of Systems: See Below Constitutional: Reports: No Symptoms HEENT: Reports: No Symptoms Respiratory: Reports: No Symptoms Cardiovascular: Reports: No Symptoms Endocrine: Reports: No Symptoms GI/Abdominal: Reports: No Symptoms : Reports: No Symptoms Musculoskeletal: Reports: No Symptoms Skin: Reports: No Symptoms Neurological: Reports: No Symptoms Psychiatric: Reports: Anxiety Hematologic/Lymphatic: Reports: No Symptoms Immunologic: Reports: No Symptoms ED EXAM, BEHAVIORAL HEALTH - Physical Exam Exam: See Below Exam Limited By: Intoxication General Appearance: Alert, No Apparent Distress Eye Exam: Bilateral Eye: PERRL Ears: Normal External Exam, Normal Canal Nose: Normal Inspection, Normal Mucosa, No Blood Throat/Mouth: Normal Inspection, Normal Lips, Normal Teeth Head: Atraumatic, Normocephalic Neck: Normal Inspection, Supple, Non-Tender, Full Range of Motion Respiratory/Chest: No Respiratory Distress, Lungs Clear, Normal Breath Sounds, No Accessory Muscle Use, Chest Non-Tender Cardiovascular: Normal Peripheral Pulses, Regular Rate, Rhythm, No Edema, No Gallop GI/Abdominal: Normal Bowel Sounds, Soft, Non-Tender, No Organomegaly Back Exam: Normal Inspection, Full Range of Motion Extremities: Normal Inspection, Normal Range of Motion Neurological: Alert, Normal Mood/Affect, CN II-XII Intact, Normal Cognition Psychiatric: Alert, Depressed Mood, Tearful COURSE, BEHAVIORAL HEALTH COMP - Course Vital Signs: Last Vital Signs Temp 37.8 C 10/25/20 11:00 Pulse 95 10/25/20 11:00 Resp 20 10/25/20 11:00 BP 123/88 10/25/20 11:00 Pulse Ox 100 10/25/20 11:00 Valium 10 mg PO x1 Orders, Labs, Meds: Medications Discontinued Medications Generic Name Dose Route Start Last Admin Trade Name Steven PRN Reason Stop Dose Admin Diazepam 10 mg 10/25/20 11:13 10/25/20 11:21 Diazepam 5 Mg Tab PO 10/25/20 11:14 10 mg NOW STA Administration Departure - Departure Time of Disposition: 11:15 Disposition: Home, Self-Care 01 Condition: Good Clinical Impression: Anxiety attack, Insomnia, Bereavement - Discharge Information Instructions: Panic Attack, [id number] Referrals: PCP,None [Primary Care Provider] - Forms: ED Department Discharge Additional Instructions: Please read discharge instructions on panic attack Valium 10 mg as needed whenever you have an anxiety/panic attack Follow up with your psychiatrist if your anxiety is getting worse
[2020-10-25 12:18] VITALS: BP 123/88; PULSE 95
== END 2020-10-25 11:35 | disposition home or self-care (01) ==
LOC: FB.ED 11:00
DX: F41.9 Anxiety disorder, unspecified (principal); G47.00 Insomnia, unspecified; Z88.0 Allergy status to penicillin; Z88.1 Allergy status to other antibiotic agents; Z91.040 Latex allergy status; Z88.8 Allergy status to other drugs, medicaments and biological substances; Z88.6 Allergy status to analgesic agent; Z91.041 Radiographic dye allergy status; Z88.2 Allergy status to sulfonamides; Z79.899 Other long term (current) drug therapy
CPT/HCPCS: 99283; A9270-GY

== ENCOUNTER 2020-10-25 18:21 | Emergency (ER) | payer MEDICARE, MEDICAID ==
[2020-10-25] MEDS ORDERED: Sodium Chloride 0.9% 10 ML Syringe FLUSH PRN (18:25)
[2020-10-25] MEDS ORDERED: Sodium Chloride 0.9% 1,000 ML IV SCH (18:30)
[2020-10-25] MEDS ORDERED: Atropine/Diphenoxylate 0.025-2.5 MG Tab PO STA (18:43)
[2020-10-25] MEDS ORDERED: Zolpidem 10 MG Tab PO STA (18:43)
[2020-10-25 19:32] VITALS: BP 107/74; PULSE 85
--- NOTE | 2020-10-25 19:56 | EDM.PDOC ---
ED HPI GENERAL MEDICAL PROBLEM - General Chief Complaint: General Stated Complaint: DIZZY Time Seen by Provider: 10/25/20 18:30 Source of Information: Reports: Patient, EMS, Family History Limitations: Reports: No Limitations - History of Present Illness INITIAL COMMENTS - FREE TEXT/NARRATIVE: Patient presented to the ED for the scond time because of dizziness and anxiety attack. She has not slept for 3 days due to the of her sister. She was prescribed valium which did helped with her panic attack. - Related Data Allergies Allergy/AdvReac Type Severity Reaction Status Date / Time acetaminophen Allergy Cannot Verified 10/26/20 08:18 [From Darvocet-N 100] Remember amoxicillin trihydrate Allergy Vaginitis Verified 10/26/20 08:18 [From Augmentin] codeine Allergy Airway Verified 10/26/20 08:18 Tightness doxycycline Allergy Nausea and Verified 10/26/20 08:18 Vomiting furosemide [From Lasix] Allergy Rash Verified 10/26/20 08:18 ibuprofen Allergy Vomiting Verified 10/26/20 08:18 ketorolac [From Toradol] Allergy Rash Verified 10/26/20 08:18 latex Allergy Cannot Verified 10/26/20 08:18 Remember metoclopramide HCl Allergy Tachycardia Verified 10/26/20 08:18 [From Reglan] morphine Allergy Rash Verified 10/26/20 08:18 oxycodone [Oxycodone] Allergy Airway Verified 10/26/20 08:18 Tightness oxycodone HCl [From Percocet] Allergy Cannot Verified 10/26/20 08:18 Remember potassium chloride Allergy Vaginitis Verified 10/26/20 08:18 potassium clavulanate Allergy Vaginitis Verified 10/26/20 08:18 [From Augmentin] propoxyphene Allergy Nausea and Verified 10/26/20 08:18 [From Darvocet-N 100] Vomiting propoxyphene napsylate Allergy Cannot Verified 10/26/20 08:18 [From Darvocet-N 100] Remember Sulfa (Sulfonamide Allergy Rash Verified 10/26/20 08:18 Antibiotics) sulfamethoxazole Allergy Vaginitis Verified 10/26/20 08:18 [From Bactrim] sumatriptan [From Imitrex] Allergy Nausea and Verified 10/26/20 08:18 Vomiting sumatriptan succinate Allergy Nausea and Verified 10/26/20 08:18 [From Imitrex] Vomiting topiramate Allergy Cannot Verified 10/26/20 08:18 Remember tramadol Allergy Rash Verified 10/26/20 08:18 trimethoprim [From Bactrim] Allergy Vaginitis Verified 10/26/20 08:18 CT dye Allergy Nausea and Uncoded 10/26/20 08:19 Vomiting, Headache Home Meds: Home Meds Multivitamin [Multivitamins] 1 each PO DAILY 11/08/12 [History] Escitalopram [Lexapro] 5 - 10 mg PO ASDIRECTED 03/01/14 [History] Omeprazole 20 mg PO DAILY 11/11/19 [History] Zolpidem [Ambien] 5 mg PO BEDTIME PRN #10 tab 11/11/19 [Rx] hydrOXYzine pamoate [Vistaril] 25 mg PO Q6H PRN 10/26/20 [History] Past Medical History HEENT History: Reports: Hard of Hearing, Other (See Below) Other HEENT History: deaf. Hearing aid to the right ear Gastrointestinal History: Reports: Bowel Obstruction, Gastritis, Other (See Below) Other Gastrointestinal History: upper abd pain. Other Genitourinary History: PT HAD BLADDER TIED (SECURED) POST HYSTERECTOMY [employer] History: Reports: Musculoskeletal History: Reports: Other (See Below) Other Musculoskeletal History: HAS BEEN IN wheelchair in past / both knees repaired and doing well at this time Neurological History: Reports: Migraines Psychiatric History: Reports: Anxiety, Depression, Panic Attack - Infectious Disease History Infectious Disease History: Reports: Chicken Pox, Measles, Mumps - Past Surgical History HEENT Surgical History: Reports: Oral Surgery GI Surgical History: Reports: Appendectomy, Cholecystectomy, Hernia Repair/Other Other GI Surgeries/Procedures: hernia repair x 2 Female Surgical History: Reports: Hysterectomy Other Female Surgeries/Procedures: A& P repair Musculoskeletal Surgical History: Reports: Arthroscopic Knee, Knee Replacement, Shoulder Surgery Other Musculoskeletal Surgeries/Procedures:: L shoulder surgery, L knee replacement Social & Family History - Family History Family Medical History: No Pertinent Family History - Tobacco Use Tobacco Use Status *Q: Never Tobacco User - Caffeine Use Caffeine Use: Reports: None Caffeine Use Comment: Didn't ask - Recreational Drug Use Recreational Drug Use: No - Living Situation & Occupation Living situation: Reports: Occupation: Disabled ED ROS GENERAL - Review of Systems Review Of Systems: See Below Constitutional: Reports: No Symptoms HEENT: Reports: No Symptoms Respiratory: Reports: No Symptoms Cardiovascular: Reports: No Symptoms Endocrine: Reports: No Symptoms GI/Abdominal: Reports: No Symptoms : Reports: No Symptoms Musculoskeletal: Reports: No Symptoms Skin: Reports: No Symptoms Neurological: Reports: Dizziness Psychiatric: Reports: Anxiety Hematologic/Lymphatic: Reports: No Symptoms Immunologic: Reports: No Symptoms ED EXAM, GENERAL - Physical Exam Exam: See Below Exam Limited By: No Limitations General Appearance: Alert, No Apparent Distress Eye Exam: Bilateral Eye: PERRL Ears: Normal External Exam, Normal Canal Nose: Normal Inspection, Normal Mucosa, No Blood Throat/Mouth: Normal Inspection, Normal Lips, Normal Teeth Head: Atraumatic, Normocephalic Neck: Normal Inspection, Supple, Non-Tender Respiratory/Chest: No Respiratory Distress, Lungs Clear, Normal Breath Sounds, No Accessory Muscle Use, Chest Non-Tender Cardiovascular: Normal Peripheral Pulses, Regular Rate, Rhythm, No Edema, No Gallop, No JVD, No Murmur, No Rub GI/Abdominal: Normal Bowel Sounds, Soft, Non-Tender, No Organomegaly, No Distention, No Abnormal Bruit, No Mass Back Exam: Normal Inspection, Full Range of Motion Extremities: Normal Inspection, Normal Range of Motion, Non-Tender, No Pedal Edema, Normal Capillary Refill Neurological: Alert, Oriented, CN II-XII Intact, Normal Cognition, Normal Gait, Normal Reflexes, No Motor/Sensory Deficits Psychiatric: Normal Affect Skin Exam: Warm Course - Vital Signs Text/Narrative:: Lab result was reviewed and discussed with patient NS 1 L bolus Ambien 10 mg PO x1(take home) Vistaril 50 mg PO x1(take home) Last Recorded V/S: Last Vital Signs Temp 37.3 C 10/25/20 18:22 Pulse 85 10/25/20 18:22 Resp 18 10/25/20 18:22 BP 107/74 10/25/20 18:22 Pulse Ox 99 10/25/20 18:22 - Orders/Labs/Meds Orders: Active Orders 24 hr Category Date Time Status Saline Lock Insert [OM.PC] Routine Oth 10/25/20 18:25 Ordered EKG 12 Lead [EK] Routine Ther 10/25/20 18:25 Ordered Labs: Laboratory Tests 08/30/21 08/30/21 Range/Units 18:40 18:40 WBC 7.5 (3.0-10.3) x10-3/uL RBC 4.21 (3.60-5.20) x10(6)uL Hgb 12.6 (11.4-15.5) g/dL Hct 38.1 (34.2-48.2) % MCV 90.6 (76.7-100.5) fL MCH 30.0 (23.9-33.9) pg MCHC 33.1 (31.9-34.8) g/dL RDW 12.2 L (12.3-16.5) % Plt Count 408 (151-488) x10(3)uL MPV 7.5 (7.1-12.4) fL Neut % (Auto) 64.4 (30.8-76.2) % Lymph % (Auto) 22.6 (18.4-52.1) % [place] % (Auto) 11.8 (4.4-15.7) % Eos % (Auto) 0.4 L (0.6-8.1) % Baso % (Auto) 0.8 (0.2-1.5) % Neut # (Auto) 4.9 (1.5-6.3) x10-3/uL Lymph # (Auto) 1.7 (1.0-4.4) x10-3/uL [place] # (Auto) 0.9 (0.3-1.0) x10-3/uL Eos # (Auto) 0.0 (0.0-0.8) x10-3/uL Baso # (Auto) 0.1 (0.0-0.1) x10-3/uL Sodium 144 (135-145) mmol/L Potassium 3.6 (3.5-5.3) mmol/L Chloride 108 (100-110) mmol/L Carbon Dioxide 23 (21-32) mmol/L BUN 11 (7-18) mg/dL Creatinine 0.8 (0.55-1.02) mg/dL Est Cr Clr Drug Dosing TNP Estimated GFR (MDRD) > 60 (>60) BUN/Creatinine Ratio 13.8 (9-20) Glucose 108 (80-116) mg/dL Calcium 9.2 (8.6-10.2) mg/dL Total Bilirubin 0.4 (0.1-1.3) mg/dL AST 12 D (5-25) IU/L ALT 22 (12-36) U/L Alkaline Phosphatase 78 (56-112) IU/L Total Protein 6.8 (6.0-8.0) g/dL Albumin 3.7 (3.5-5.2) g/dL Globulin 3.1 g/dL Albumin/Globulin Ratio 1.2 Meds: Medications Discontinued Medications Generic Name Dose Route Start Last Admin Trade Name Freq PRN Reason Stop Dose Admin Diphenoxylate HCl/Atropine 2 tab 10/25/20 18:43 10/25/20 19:14 Atropine/Diphenoxylate 0.025-2.5 Mg Tab PO 10/25/20 18:44 2 tab NOW STA Administration Hydroxyzine Pamoate 50 mg 10/25/20 18:44 10/25/20 19:14 Hydroxyzine Pamoate 50 Mg Cap PO 10/25/20 18:45 50 mg NOW STA Administration Sodium Chloride 1,000 mls @ 999 mls/hr 10/25/20 18:30 10/25/20 19:00 Normal Saline IV 999 mls/hr ASDIRECTED LETICIA Administration Sodium Chloride 10 ml 10/25/20 18:25 Sodium Chloride 0.9% 10 Ml Syringe FLUSH ASDIRECTED PRN Keep Vein Open Zolpidem Tartrate 10 mg 10/25/20 18:43 10/25/20 19:14 Zolpidem 10 Mg Tab PO 10/25/20 18:44 10 mg NOW STA Administration Departure - Departure Time of Disposition: 20:20 Disposition: Home, Self-Care 01 Condition: Good Clinical Impression: Bereavement, Insomnia - Discharge Information Instructions: Managing Loss, Adult, Insomnia Referrals: PCP,None [Ordering Only Provider] - Forms: ED Department Discharge Additional Instructions: Please read discharge instructions for bereavement Take vistaril 50 mg with ambien 10 mg at bed time as needed for sleep Follow up as needed Sepsis Event Note (ED) - Evaluation Sepsis Screening Result: No Definite Risk - My Orders Last 24 Hours: My Active Orders 10/25/20 18:25 Saline Lock Insert [OM.PC] Routine EKG 12 Lead [EK] Routine - Assessment/Plan Last 24 Hours: My Active Orders 10/25/20 18:25 Saline Lock Insert [OM.PC] Routine EKG 12 Lead [EK] Routine
== END 2020-10-25 20:10 | disposition home or self-care (01) ==
LOC: FB.ED 18:21
DX: G47.00 Insomnia, unspecified (principal); Z88.0 Allergy status to penicillin; Z88.5 Allergy status to narcotic agent; Z88.1 Allergy status to other antibiotic agents; Z91.040 Latex allergy status; Z88.6 Allergy status to analgesic agent; Z88.8 Allergy status to other drugs, medicaments and biological substances; Z91.041 Radiographic dye allergy status; Z88.2 Allergy status to sulfonamides; Z79.899 Other long term (current) drug therapy; Z63.4 Disappearance and death of family member; F41.9 Anxiety disorder, unspecified
CPT/HCPCS: 36415; 80053; 85025; 99284; A9270; J7030

== ENCOUNTER 2021-01-17 23:40 | Emergency (ER) | payer MEDICARE, MEDICAID ==
[2021-01-17] MEDS ORDERED: Sulfamethoxazole/Trimethoprim 800-160 MG Tab PO ONE (23:41)
[2021-01-18] MEDS ORDERED: Ondansetron 4 MG Tab.DIS PO STA (00:10)
[2021-01-18] MEDS ORDERED: hydrOXYzine HCl 50 MG/ML SDV IM ONE (00:37)
[2021-01-18] MEDS ORDERED: hydrOXYzine HCl 50 MG/ML SDV ONE (00:39)
[2021-01-18] MEDS ORDERED: Iopamidol 755 Mg/ML 75 ML Bottle IV ONE (00:45)
--- NOTE | 2021-01-18 02:36 | EDM.PDOC ---
ED HPI GENERAL MEDICAL PROBLEM - General Stated Complaint: VOMITING Time Seen by Provider: 01/17/21 23:50 Source of Information: Reports: Patient History Limitations: Reports: No Limitations - History of Present Illness INITIAL COMMENTS - FREE TEXT/NARRATIVE: Patient presented to the ED because of N/V and abdominal pain. There is no fever, chills, changes in bowel movements or UTI s/s. Upper Abdomen Pain Score (Numeric/FACES): 10 - Related Data Allergies Allergy/AdvReac Type Severity Reaction Status Date / Time acetaminophen Allergy Cannot Verified 10/26/20 08:18 [From Darvocet-N 100] Remember amoxicillin trihydrate Allergy Vaginitis Verified 10/26/20 08:18 [From Augmentin] codeine Allergy Airway Verified 10/26/20 08:18 Tightness doxycycline Allergy Nausea and Verified 10/26/20 08:18 Vomiting furosemide [From Lasix] Allergy Rash Verified 10/26/20 08:18 ibuprofen Allergy Vomiting Verified 10/26/20 08:18 ketorolac [From Toradol] Allergy Rash Verified 10/26/20 08:18 latex Allergy Cannot Verified 10/26/20 08:18 Remember metoclopramide HCl Allergy Tachycardia Verified 10/26/20 08:18 [From Reglan] morphine Allergy Rash Verified 10/26/20 08:18 oxycodone [Oxycodone] Allergy Airway Verified 10/26/20 08:18 Tightness oxycodone HCl [From Percocet] Allergy Cannot Verified 10/26/20 08:18 Remember potassium chloride Allergy Vaginitis Verified 10/26/20 08:18 potassium clavulanate Allergy Vaginitis Verified 10/26/20 08:18 [From Augmentin] propoxyphene Allergy Nausea and Verified 10/26/20 08:18 [From Darvocet-N 100] Vomiting propoxyphene napsylate Allergy Cannot Verified 10/26/20 08:18 [From Darvocet-N 100] Remember Sulfa (Sulfonamide Allergy Rash Verified 10/26/20 08:18 Antibiotics) sulfamethoxazole Allergy Vaginitis Verified 10/26/20 08:18 [From Bactrim] sumatriptan [From Imitrex] Allergy Nausea and Verified 10/26/20 08:18 Vomiting sumatriptan succinate Allergy Nausea and Verified 10/26/20 08:18 [From Imitrex] Vomiting topiramate Allergy Cannot Verified 10/26/20 08:18 Remember tramadol Allergy Rash Verified 10/26/20 08:18 trimethoprim [From Bactrim] Allergy Vaginitis Verified 10/26/20 08:18 Home Meds: Home Meds Multivitamin [Multivitamins] 1 each PO DAILY 11/08/12 [History] Escitalopram [Lexapro] 5 - 10 mg PO ASDIRECTED 03/01/14 [History] Omeprazole 20 mg PO DAILY 11/11/19 [History] Zolpidem [Ambien] 5 mg PO BEDTIME PRN #10 tab 11/11/19 [Rx] hydrOXYzine pamoate [Vistaril] 25 mg PO Q6H PRN 10/26/20 [History] Ciprofloxacin HCl [Cipro] 500 mg PO BID #6 tablet 01/24/21 [Rx] Past Medical History HEENT History: Reports: Hard of Hearing, Other (See Below) Other HEENT History: deaf. Hearing aid to the right ear Gastrointestinal History: Reports: Bowel Obstruction, Gastritis, Other (See Below) Other Gastrointestinal History: upper abd pain. Other Genitourinary History: PT HAD BLADDER TIED (SECURED) POST HYSTERECTOMY [employer] History: Reports: Musculoskeletal History: Reports: Other (See Below) Other Musculoskeletal History: HAS BEEN IN wheelchair in past / both knees repaired and doing well at this time Neurological History: Reports: Migraines Psychiatric History: Reports: Anxiety, Depression, Panic Attack - Infectious Disease History Infectious Disease History: Reports: Chicken Pox, Measles, Mumps - Past Surgical History HEENT Surgical History: Reports: Oral Surgery GI Surgical History: Reports: Appendectomy, Cholecystectomy, Hernia Repair/Other Other GI Surgeries/Procedures: hernia repair x 2 Female Surgical History: Reports: Hysterectomy Other Female Surgeries/Procedures: A& P repair Musculoskeletal Surgical History: Reports: Arthroscopic Knee, Knee Replacement, Shoulder Surgery Other Musculoskeletal Surgeries/Procedures:: L shoulder surgery, L knee replacement Social & Family History - Family History Family Medical History: No Pertinent Family History - Caffeine Use Caffeine Use: Reports: None Caffeine Use Comment: Didn't ask - Living Situation & Occupation Living situation: Reports: Occupation: Disabled ED ROS GENERAL - Review of Systems Review Of Systems: See Below Constitutional: Reports: No Symptoms HEENT: Reports: No Symptoms Respiratory: Reports: No Symptoms Cardiovascular: Reports: No Symptoms Endocrine: Reports: No Symptoms GI/Abdominal: Reports: Abdominal Pain, Nausea, Vomiting : Reports: No Symptoms Musculoskeletal: Reports: No Symptoms Skin: Reports: No Symptoms Neurological: Reports: No Symptoms Psychiatric: Reports: No Symptoms ED EXAM, GI/ABD - Physical Exam Exam: See Below Exam Limited By: No Limitations General Appearance: Alert, No Apparent Distress Ears: Normal External Exam, Normal Canal Nose: Normal Inspection, Normal Mucosa, No Blood Throat/Mouth: Normal Inspection, Normal Lips, Normal Teeth Head: Atraumatic, Normocephalic Neck: Normal Inspection, Supple, Non-Tender, Full Range of Motion Respiratory/Chest: No Respiratory Distress, Lungs Clear, Normal Breath Sounds, No Accessory Muscle Use, Chest Non-Tender Cardiovascular: Normal Peripheral Pulses, Regular Rate, Rhythm, No Edema, No Gallop GI/Abdominal Exam: Normal Bowel Sounds, Soft, Non-Tender, No Organomegaly, No Distention, No Abnormal Bruit Back Exam: Normal Inspection, Full Range of Motion Course - Vital Signs Text/Narrative:: Lab/CT abd-pelvis result was reviewed and discussed with patient. Vistaril 50 mg IM x1 Last Recorded V/S: Last Vital Signs Temp 37.4 C 01/18/21 02:55 Pulse 81 01/18/21 02:55 Resp 18 01/18/21 02:55 BP 105/73 01/18/21 02:55 Pulse Ox 94 L 01/18/21 02:55 - Orders/Labs/Meds Labs: Laboratory Tests 01/18/21 01/18/21 01/18/21 Range/Units 00:23 00:23 00:23 WBC 12.6 H (3.0-10.3) x10-3/uL RBC 4.68 (3.60-5.20) x10(6)uL Hgb 13.9 (11.4-15.5) g/dL Hct 41.9 (34.2-48.2) % MCV 89.5 (76.7-100.5) fL MCH 29.6 (23.9-33.9) pg MCHC 33.1 (31.9-34.8) g/dL RDW 12.9 (12.3-16.5) % Plt Count 337 (151-488) x10(3)uL MPV 7.6 (7.1-12.4) fL Neut % (Auto) 78.7 H (30.8-76.2) % Lymph % (Auto) 15.3 L (18.4-52.1) % [place] % (Auto) 4.8 (4.4-15.7) % Eos % (Auto) 0.6 (0.6-8.1) % Baso % (Auto) 0.6 (0.2-1.5) % Neut # (Auto) 9.9 H (1.5-6.3) x10-3/uL Lymph # (Auto) 1.9 (1.0-4.4) x10-3/uL [place] # (Auto) 0.6 (0.3-1.0) x10-3/uL Eos # (Auto) 0.1 (0.0-0.8) x10-3/uL Baso # (Auto) 0.1 (0.0-0.1) x10-3/uL Sodium 142 (135-145) mmol/L Potassium 3.8 (3.5-5.3) mmol/L Chloride 106 (100-110) mmol/L Carbon Dioxide 28 (21-32) mmol/L BUN 17 (7-18) mg/dL Creatinine 1.0 (0.55-1.02) mg/dL Est Cr Clr Drug Dosing TNP Estimated GFR (MDRD) 57 L (>60) BUN/Creatinine Ratio 17.0 (9-20) Glucose 155 H (80-116) mg/dL Calcium 9.3 (8.6-10.2) mg/dL Total Bilirubin 0.4 (0.1-1.3) mg/dL AST 14 D (5-25) IU/L ALT 19 D (12-36) U/L Alkaline Phosphatase 101 (56-112) IU/L Total Protein 7.8 (6.0-8.0) g/dL Albumin 4.4 (3.5-5.2) g/dL Globulin 3.4 g/dL Albumin/Globulin Ratio 1.3 Amylase 63 (25-115) U/L Lipase 141 (73-393) U/L Urine Color (YELLOW) Urine Appearance (CLEAR) Urine pH (5.0-6.5) Ur Specific [place] (1.010-1.025) Urine Protein (NEGATIVE) mg/dL Urine Glucose (UA) (NORMAL) mg/dL Urine Ketones (NEGATIVE) mg/dL Urine Occult Blood (NEGATIVE) Urine Nitrite (NEGATIVE) Urine Bilirubin (NEGATIVE) Urine Urobilinogen (NEGATIVE) mg/dL Ur Leukocyte Esterase (NEGATIVE) Urine RBC (0-5) Urine WBC (0-5) Ur Squamous Epith Cells (NS,R,O) Urine Bacteria (NS) Urine Mucus (NS) Urine HCG, Qual (NEGATIVE) 01/18/21 01/18/21 Range/Units 00:30 00:30 WBC (3.0-10.3) x10-3/uL RBC (3.60-5.20) x10(6)uL Hgb (11.4-15.5) g/dL Hct (34.2-48.2) % MCV (76.7-100.5) fL MCH (23.9-33.9) pg MCHC (31.9-34.8) g/dL RDW (12.3-16.5) % Plt Count (151-488) x10(3)uL MPV (7.1-12.4) fL Neut % (Auto) (30.8-76.2) % Lymph % (Auto) (18.4-52.1) % [place] % (Auto) (4.4-15.7) % Eos % (Auto) (0.6-8.1) % Baso % (Auto) (0.2-1.5) % Neut # (Auto) (1.5-6.3) x10-3/uL Lymph # (Auto) (1.0-4.4) x10-3/uL [place] # (Auto) (0.3-1.0) x10-3/uL Eos # (Auto) (0.0-0.8) x10-3/uL Baso # (Auto) (0.0-0.1) x10-3/uL Sodium (135-145) mmol/L Potassium (3.5-5.3) mmol/L Chloride (100-110) mmol/L Carbon Dioxide (21-32) mmol/L BUN (7-18) mg/dL Creatinine (0.55-1.02) mg/dL Est Cr Clr Drug Dosing Estimated GFR (MDRD) (>60) BUN/Creatinine Ratio (9-20) Glucose (80-116) mg/dL Calcium (8.6-10.2) mg/dL Total Bilirubin (0.1-1.3) mg/dL AST (5-25) IU/L ALT (12-36) U/L Alkaline Phosphatase (56-112) IU/L Total Protein (6.0-8.0) g/dL Albumin (3.5-5.2) g/dL Globulin g/dL Albumin/Globulin Ratio Amylase (25-115) U/L Lipase (73-393) U/L Urine Color Yellow (YELLOW) Urine Appearance Slightly cloudy (CLEAR) Urine pH 5.0 (5.0-6.5) Ur Specific [place] 1.030 H (1.010-1.025) Urine Protein 30 H (NEGATIVE) mg/dL Urine Glucose (UA) Normal (NORMAL) mg/dL Urine Ketones 15 H (NEGATIVE) mg/dL Urine Occult Blood Negative (NEGATIVE) Urine Nitrite Negative (NEGATIVE) Urine Bilirubin Small H (NEGATIVE) Urine Urobilinogen Normal (NEGATIVE) mg/dL Ur Leukocyte Esterase Large H (NEGATIVE) Urine RBC 0-5 (0-5) Urine WBC 5-10 H (0-5) Ur Squamous Epith Cells Few H (NS,R,O) Urine Bacteria Moderate H (NS) Urine Mucus Moderate H (NS) Urine HCG, Qual Negative (NEGATIVE) Meds: Medications Discontinued Medications Generic Name Dose Route Start Last Admin Trade Name Freq PRN Reason Stop Dose Admin Hydroxyzine HCl 50 mg 01/18/21 00:37 01/18/21 00:43 Hydroxyzine Hcl 50 Mg/Ml Sdv IM 01/18/21 00:38 50 mg ONETIME ONE Administration Hydroxyzine HCl Confirm 01/18/21 00:39 01/18/21 03:45 Hydroxyzine Hcl 50 Mg/Ml Sdv Administered 01/18/21 00:40 Not Given Dose 50 mg .ROUTE .STK-MED ONE Iopamidol 75 ml 01/18/21 00:45 01/18/21 01:03 Iopamidol 755 Mg/Ml 75 Ml Bottle IV 01/18/21 00:46 75 ml ONETIME ONE Administration Ondansetron HCl 4 mg 01/18/21 00:10 01/18/21 00:15 Ondansetron 4 Mg Tab.Dis PO 01/18/21 00:11 4 mg NOW STA Administration Trimethoprim/Sulfamethoxazole 10 tab 01/17/21 23:41 Sulfamethoxazole/Trimethoprim 800-160 Mg Tab PO 01/17/21 23:42 .STK-MED ONE Departure - Departure Time of Disposition: 02:35 Disposition: Home, Self-Care 01 Condition: Good Clinical Impression: UTI (urinary tract infection), Abdominal pain - Discharge Information Prescriptions: Ciprofloxacin HCl [Cipro] 500 mg PO BID #6 tablet Instructions: Urinary Tract Infection, Adult, [id number], Abdominal Pain, Ad ult, [id number] Referrals: Jake Beatty MD [Primary Care Provider] - Forms: ED Department Discharge Additional Instructions: [place] read discharge instructions on abdominal pain and UTI Increase oral fluids Bactrim DS twice daily for 5 days changed to Cipro 500 mg PO BID for 3 days. Follow up as needed
[2021-01-18 05:05] VITALS: BP 105/73; PULSE 81
== END 2021-01-18 02:55 | disposition home or self-care (01) ==
LOC: FB.ED 23:40
DX: N39.0 Urinary tract infection, site not specified (principal); Z88.0 Allergy status to penicillin; Z88.1 Allergy status to other antibiotic agents; Z88.5 Allergy status to narcotic agent; Z91.040 Latex allergy status; Z88.6 Allergy status to analgesic agent; Z88.2 Allergy status to sulfonamides; Z88.8 Allergy status to other drugs, medicaments and biological substances
CPT/HCPCS: 36415; 74177; 80053; 81001; 81025; 82150; 83690; 85025; 87086; 87088; 87186; 96372; 99284; A9270; J3410; Q9967

== ENCOUNTER 2022-04-25 15:31 | Emergency (ER) | payer MEDICARE, MEDICAID ==
[2022-04-25] MEDS ORDERED: LORazepam 2 MG/ML SDV IM STA (15:49)
[2022-04-25] MEDS ORDERED: SUMAtriptan 6 MG/0.5 ML SDV SUBCUT ONE (15:57)
[2022-04-25 16:44] VITALS: BP 150/88; PULSE 82
== END 2022-04-25 16:35 | disposition home or self-care (01) ==
LOC: FB.ED 15:31
DX: F41.0 Panic disorder [episodic paroxysmal anxiety] (principal); Z88.0 Allergy status to penicillin; Z88.1 Allergy status to other antibiotic agents; Z91.040 Latex allergy status; Z88.5 Allergy status to narcotic agent; Z88.8 Allergy status to other drugs, medicaments and biological substances; Z88.2 Allergy status to sulfonamides; Z79.899 Other long term (current) drug therapy
CPT/HCPCS: 96372; 99284; J2060; J3030

== ENCOUNTER 2022-04-26 17:04 | Emergency (ER) | payer MEDICARE, MEDICAID ==
[2022-04-26] MEDS: hydrOXYzine HCl 50 MG/ML SDV IM ONE (17:23)
[2022-04-26] MEDS: LORazepam 2 MG/ML SDV IM ONE (17:29)
[2022-04-26 18:44] VITALS: BP 116/80; PULSE 81
== END 2022-04-26 18:38 | disposition home or self-care (01) ==
LOC: FB.ED 17:04
DX: F41.1 Generalized anxiety disorder (principal); F41.0 Panic disorder [episodic paroxysmal anxiety]; Z88.6 Allergy status to analgesic agent; Z88.0 Allergy status to penicillin; Z88.5 Allergy status to narcotic agent; Z88.1 Allergy status to other antibiotic agents; Z91.040 Latex allergy status; Z88.8 Allergy status to other drugs, medicaments and biological substances; Z88.2 Allergy status to sulfonamides; Z79.899 Other long term (current) drug therapy
CPT/HCPCS: 96372; 99283; 99284; J2060; J3410

== ENCOUNTER 2022-06-14 16:13 | Emergency (ER) | payer MEDICARE, MEDICAID ==
[2022-06-14] MEDS ORDERED: hydrOXYzine HCl 50 MG/ML SDV IM ONE (16:20)
[2022-06-14] MEDS ORDERED: LORazepam 2 MG/ML SDV IM STA (16:53)
[2022-06-14 17:19] LABS: ESTIMATED GFR 100 mL/min (>60)
[2022-06-14 18:12] VITALS: BP 127/86; PULSE 84
== END 2022-06-14 17:58 | disposition home or self-care (01) ==
LOC: FB.ED 16:13
DX: R07.89 Other chest pain (principal); F41.9 Anxiety disorder, unspecified; Z86.16 Personal history of COVID-19; Z88.0 Allergy status to penicillin; Z91.040 Latex allergy status; Z88.5 Allergy status to narcotic agent; Z88.8 Allergy status to other drugs, medicaments and biological substances; Z88.1 Allergy status to other antibiotic agents; Z79.899 Other long term (current) drug therapy
CPT/HCPCS: 36415; 80053; 84484; 85025; 93005; 96372; 99285; J2060; J3410

== ENCOUNTER 2022-10-06 15:00 | Emergency (ER) | payer MEDICARE, MEDICAID ==
[2022-10-06] MEDS: Nitroglycerin 0.4 MG Tab.SL SL PRN ×3 (15:03→15:23)
[2022-10-06] MEDS ORDERED: Sodium Chloride 0.9% 10 ML Syringe FLUSH PRN (15:09)
[2022-10-06] MEDS ORDERED: Morphine 4 MG/ML VIAL IVPUSH ONE ×3 (15:11→16:10)
[2022-10-06] MEDS ORDERED: Naloxone 0.4 MG/ML SDV IVPUSH PRN (15:11)
[2022-10-06 15:24] LABS: HEMATOCRIT 37.6 % (34.2-48.2); HEMOGLOBIN 12.6 g/dL (11.4-15.5); MEAN CORPUSCULAR HEMOGLOBIN 30.8 pg (23.9-33.9); MEAN CORPUSCULAR HGB CONC 33.6 g/dL (31.9-34.8); MEAN CORPUSCULAR VOLUME 91.6 fL (76.7-100.5); RED BLOOD CELL COUNT 4.1 x10(6)uL (3.60-5.20); RED CELL DISTRIBUTION WIDTH 12.4 % (12.3-16.5); WHITE BLOOD CELL COUNT,WBC 6.9 x10-3/uL (3.0-10.3)
[2022-10-06] MEDS ORDERED: Aspirin 81 MG Tab.Chew PO ONE (15:26)
[2022-10-06 15:27] LABS: BLOOD UREA NITROGEN,BUN 13 mg/dL (7-18); BUN/CREATININE RATIO 14.4 (9-20); CALCIUM 9.3 mg/dL (8.6-10.2); CARBON DIOXIDE,CO2 27 mmol/L (21-32); CHLORIDE,CL 104 mmol/L (100-110); CREATININE 0.9 mg/dL (0.55-1.02); ESTIMATED GFR 74 mL/min (>60); GLUCOSE RANDOM 123 mg/dL (80-116); POTASSIUM,K 3.5 mmol/L (3.5-5.3); SODIUM,NA 140 mmol/L (135-145)
[2022-10-06 15:33] LABS: A/G RATIO 1.2; ALANINE AMINOTRANSFERASE,ALT 18 U/L (12-36); ALBUMIN 3.7 g/dL (3.5-5.2); ALKALINE PHOSPHATASE 93 IU/L (56-112); ASPARTATE AMNIOTRANSFERASE,AST 16 IU/L (5-25); BILIRUBIN TOTAL 0.5 mg/dL (0.1-1.3); INR 0.93 (1.00-1.24); PROTEIN TOTAL,TP 6.8 g/dL (6.0-8.0); PROTHROMBIN TIME 9.6 sec (9.0-11.1); PTT,PARTIAL THROMBOPLSTIN TIME 26.4 SECONDS (24.4-33.2)
[2022-10-06 15:35] LABS: C-REACTIVE PROTEIN 1.01 mg/dL (<0.33); TROPONIN I < 4.0 pg/mL (4.0-60.3)
[2022-10-06] MEDS ORDERED: LORazepam 2 MG/ML SDV IVPUSH ONE (15:41)
[2022-10-06] MEDS ORDERED: Morphine 2 MG/ML SYRINGE IVPUSH ONE (16:08)
[2022-10-06] MEDS ORDERED: Iopamidol 755 Mg/ML 100 ML Bottle IV ONE (16:15)
[2022-10-06] MEDS ORDERED: Sodium Chloride 0.9% 1,000 ML IV SCH ×2 (16:45→18:00)
[2022-10-06 16:48] VITALS: PULSE 90
[2022-10-06] MEDS ORDERED: Acetaminophen/oxyCODONE 325-5 MG Tab PO PRN (17:58)
[2022-10-06 20:50] VITALS: BP 105/64
== END 2022-10-06 20:10 | disposition other institution (70) ==
LOC: FB.ED 15:00
DX: R07.89 Other chest pain (principal); Z86.16 Personal history of COVID-19; Z88.0 Allergy status to penicillin; Z88.1 Allergy status to other antibiotic agents; Z88.2 Allergy status to sulfonamides; Z88.5 Allergy status to narcotic agent; Z88.6 Allergy status to analgesic agent; Z88.8 Allergy status to other drugs, medicaments and biological substances; Z91.040 Latex allergy status
CPT/HCPCS: 36415; 71045; 71275; 80053; 84484; 85027; 85379; 85610; 85730; 86140; 93005; 96374; 96375; 96376; 99285; A9270; J2060; J2270; J7030; Q9967; 93010; 99284

== ENCOUNTER 2023-07-31 00:16 | Emergency (ER) | payer MEDICARE, MEDICAID ==
[2023-07-31] MEDS ORDERED: Sodium Chloride 0.9% 10 ML Syringe FLUSH PRN (00:51)
[2023-07-31] MEDS: Ondansetron 4 MG/2 ML SDV IVPUSH ONE (01:01)
[2023-07-31 01:08] LABS: BASOPHILS PERCENT AUTO 0.4 % (0.2-1.5); EOSINOPHILS ABSOLUTE AUTO 0.1 x10-3/uL (0.0-0.8); EOSINOPHILS PERCENT AUTO 0.7 % (0.6-8.1); HEMATOCRIT 39.2 % (34.2-48.2); LYMPHOCYTES ABSOLUTE AUTO 1.5 x10-3/uL (1.0-4.4); LYMPHOCYTES PERCENT AUTO 13.4 % (18.4-52.1); MEAN CORPUSCULAR HEMOGLOBIN 30.3 pg (23.9-33.9); MEAN CORPUSCULAR HGB CONC 33.1 g/dL (31.9-34.8); MEAN CORPUSCULAR VOLUME 91.4 fL (76.7-100.5); MEAN PLATELET VOLUME 7.8 fL (7.1-12.4); MONOCYTES ABSOLUTE AUTO 0.6 x10-3/uL (0.3-1.0); MONOCYTES PERCENT AUTO 5.6 % (4.4-15.7); NEUTROPHILS ABSOLUTE AUTO 8.8 x10-3/uL (1.5-6.3); NEUTROPHILS PERCENT AUTO 79.9 % (30.8-76.2); PLATELET COUNT,PLT 306 x10(3)uL (151-488); RED BLOOD CELL COUNT 4.29 x10(6)uL (3.60-5.20); RED CELL DISTRIBUTION WIDTH 12.7 % (12.3-16.5)
[2023-07-31 01:17] LABS: BLOOD UREA NITROGEN,BUN 12 mg/dL (7-18); BUN/CREATININE RATIO 13.3 (9-20); CALCIUM 9.4 mg/dL (8.6-10.2); CARBON DIOXIDE,CO2 29 mmol/L (21-32); CHLORIDE,CL 105 mmol/L (100-110); CREATININE 0.9 mg/dL (0.55-1.02); EST CRCL DRUG DOSING (CG) 55.68 mL/min; ESTIMATED GFR 74 mL/min (>60); GLUCOSE RANDOM 151 mg/dL (80-116); POTASSIUM,K 3.6 mmol/L (3.5-5.3); SODIUM,NA 142 mmol/L (135-145)
[2023-07-31 01:24] LABS: A/G RATIO 1.3; ALANINE AMINOTRANSFERASE,ALT 18 U/L (12-36); ALBUMIN 3.9 g/dL (3.5-5.2); ALKALINE PHOSPHATASE 87 IU/L (56-112); AMYLASE 55 U/L (25-115); ASPARTATE AMNIOTRANSFERASE,AST 11 IU/L (5-25); BILIRUBIN TOTAL 0.4 mg/dL (0.1-1.3); PROTEIN TOTAL,TP 6.9 g/dL (6.0-8.0)
[2023-07-31] MEDS ORDERED: Naloxone 0.4 MG/ML SDV IVPUSH PRN (01:28)
[2023-07-31] MEDS: Alum Hydroxide/Mag Hydroxide 15 ML, Lidocaine 2% 15 ML PO ONE (01:34)
[2023-07-31 01:41] LABS: BILIRUBIN,URINE NEGATIVE (NEGATIVE); GLUCOSE,URINE NORMAL (NORMAL); KETONES,URINE 15 mg/dL (NEGATIVE); LEUKOCYTE ESTERASE,URINE NEGATIVE (NEGATIVE); NITRITE,URINE NEGATIVE (NEGATIVE); OCCULT BLOOD,URINE NEGATIVE (NEGATIVE); PROTEIN,URINE NEGATIVE (NEGATIVE); UROBILINOGEN,URINE NORMAL (NEGATIVE)
[2023-07-31 01:51] LABS: AMORPHOUS SEDIMENT,URINE FEW; APPEARANCE,URINE CLEAR (CLEAR); BACTERIA,URINE RARE (NS); COLOR,URINE YELLOW (YELLOW); RBC,URINE 0-5 (0-5); SQUAMOUS EPITHELIAL CELLS,UR OCCASIONAL (NS,R,O); WBC,URINE 0-5 (0-5)
[2023-07-31] MEDS: Morphine 4 MG/ML VIAL IVPUSH ONE (01:55)
[2023-07-31] MEDS: Sodium Chloride 0.9% 1,000 ML IV SCH ×3 (02:44→12:18)
[2023-07-31] MEDS: Iopamidol 755 Mg/ML 100 ML Bottle IV SCH (02:56)
[2023-07-31] MEDS: Morphine 2 MG/ML SYRINGE IVPUSH PRN (04:17)
[2023-07-31] MEDS: Ondansetron 4 MG/2 ML SDV IVPUSH PRN (05:59)
[2023-07-31] MEDS: LORazepam 2 MG/ML SDV IVPUSH ONE (08:43)
[2023-07-31 14:52] VITALS: BP 130/78; PULSE 96
== END 2023-07-31 14:02 ==
LOC: FB.ED 00:16
DX: K29.70 Gastritis, unspecified, without bleeding (principal); K56.609 Unspecified intestinal obstruction, unspecified as to partial versus complete obstruction; F41.1 Generalized anxiety disorder; Z88.0 Allergy status to penicillin; Z88.5 Allergy status to narcotic agent; Z91.040 Latex allergy status; Z88.2 Allergy status to sulfonamides; Z88.8 Allergy status to other drugs, medicaments and biological substances; Z79.899 Other long term (current) drug therapy; Z86.16 Personal history of COVID-19; Z90.49 Acquired absence of other specified parts of digestive tract; Z90.710 Acquired absence of both cervix and uterus
CPT/HCPCS: 36415; 43752; 74177; 80053; 81001; 82150; 83690; 85025; 93005; 93010; 96361; 96374; 96375; 96376; 99285; 99285-25; A9270-GY; J2060; J2270; J2405; J7030; Q9967

== ENCOUNTER 2023-12-31 14:56 | Emergency (ER) | payer MEDICARE, MEDICAID ==
[2023-12-31 15:22] LABS: BASOPHILS ABSOLUTE AUTO 0.1 x10-3/uL (0.0-0.1); EOSINOPHILS ABSOLUTE AUTO 0.1 x10-3/uL (0.0-0.8); HEMATOCRIT 38.9 % (34.2-48.2); LYMPHOCYTES PERCENT AUTO 41.8 % (18.4-52.1); MEAN CORPUSCULAR HEMOGLOBIN 30.7 pg (23.9-33.9); MEAN CORPUSCULAR HGB CONC 33.5 g/dL (31.9-34.8); MEAN CORPUSCULAR VOLUME 91.7 fL (76.7-100.5); MEAN PLATELET VOLUME 7.9 fL (7.1-12.4); MONOCYTES ABSOLUTE AUTO 0.7 x10-3/uL (0.3-1.0); MONOCYTES PERCENT AUTO 10.3 % (4.4-15.7); NEUTROPHILS ABSOLUTE AUTO 3.2 x10-3/uL (1.5-6.3); NEUTROPHILS PERCENT AUTO 44.9 % (30.8-76.2); PLATELET COUNT,PLT 321 x10(3)uL (151-488); RED BLOOD CELL COUNT 4.24 x10(6)uL (3.60-5.20); RED CELL DISTRIBUTION WIDTH 12.3 % (12.3-16.5); WHITE BLOOD CELL COUNT,WBC 7.1 x10-3/uL (3.0-10.3)
[2023-12-31] MEDS: HYDROmorphone 2 MG/ML SDV IVPUSH ONE ×2 (15:26→17:09)
[2023-12-31] MEDS: Ondansetron 4 MG/2 ML SDV IVPUSH ONE (15:27)
[2023-12-31] MEDS: Sodium Chloride 0.9% 1,000 ML IV ONE ×2 (15:27→17:05)
[2023-12-31 15:28] LABS: BLOOD UREA NITROGEN,BUN 18 mg/dL (7-18); BUN/CREATININE RATIO 22.5 (9-20); CALCIUM 9.2 mg/dL (8.6-10.2); CARBON DIOXIDE,CO2 29 mmol/L (21-32); CHLORIDE,CL 104 mmol/L (100-110); CREATININE 0.8 mg/dL (0.55-1.02); ESTIMATED GFR 85 mL/min (>60); GLUCOSE RANDOM 105 mg/dL (80-116); SODIUM,NA 137 mmol/L (135-145)
[2023-12-31 15:31] LABS: INR 0.91 (1.00-1.24); PROTHROMBIN TIME 9.6 sec (9.0-11.1)
[2023-12-31 15:33] LABS: A/G RATIO 1.1; ALANINE AMINOTRANSFERASE,ALT 17 U/L (12-36); ALBUMIN 3.6 g/dL (3.5-5.2); ALKALINE PHOSPHATASE 91 IU/L (56-112); ASPARTATE AMNIOTRANSFERASE,AST 9 IU/L (5-25); BILIRUBIN TOTAL 0.4 mg/dL (0.1-1.3)
[2023-12-31] MEDS: Iopamidol 755 Mg/ML 100 ML Bottle IV ONE (16:03)
[2023-12-31 16:10] LABS: APPEARANCE,URINE SLIGHTLY CLOUDY (CLEAR); BILIRUBIN,URINE NEGATIVE (NEGATIVE); COLOR,URINE YELLOW (YELLOW); GLUCOSE,URINE NORMAL (NORMAL); KETONES,URINE NEGATIVE (NEGATIVE); LEUKOCYTE ESTERASE,URINE LARGE (NEGATIVE); NITRITE,URINE NEGATIVE (NEGATIVE); OCCULT BLOOD,URINE NEGATIVE (NEGATIVE); PROTEIN,URINE NEGATIVE (NEGATIVE); UROBILINOGEN,URINE NORMAL (NEGATIVE)
[2023-12-31] MEDS: LORazepam 2 MG/ML SDV IVPUSH ONE (16:30)
[2023-12-31 16:55] LABS: BACTERIA,URINE FEW (NS); RBC,URINE 0-5 (0-5); SQUAMOUS EPITHELIAL CELLS,UR FEW (NS,R,O)
[2023-12-31 18:20] VITALS: BP 101/76; PULSE 98
== END 2023-12-31 18:10 ==
LOC: FB.ED 14:56
DX: K56.609 Unspecified intestinal obstruction, unspecified as to partial versus complete obstruction (principal); Z90.710 Acquired absence of both cervix and uterus; Z86.16 Personal history of COVID-19; Z90.49 Acquired absence of other specified parts of digestive tract; Z79.899 Other long term (current) drug therapy; Z88.1 Allergy status to other antibiotic agents; Z88.0 Allergy status to penicillin; Z88.5 Allergy status to narcotic agent; Z88.6 Allergy status to analgesic agent; Z91.040 Latex allergy status; Z88.2 Allergy status to sulfonamides; Z88.9 Allergy status to unspecified drugs, medicaments and biological substances; Z88.8 Allergy status to other drugs, medicaments and biological substances
CPT/HCPCS: 36415; 43752; 71045; 74177; 80053; 81001; 83690; 85025; 85610; 85730; 87086; 96361; 96374; 96375; 96376; 99285; J1171; J2060; J2405; J7030; Q9967

== ENCOUNTER 2024-03-03 07:28 | Day surgery (SDC) | payer MEDICARE, MEDICAID ==
[2024-03-03] MEDS ORDERED: Lidocaine 2% 100 MG/5 ML Syringe IVPUSH ONE (07:29)
[2024-03-03] MEDS ORDERED: Propofol 200 MG/20 ML SDV IV ONE (07:29)
[2024-03-03] MEDS ORDERED: Sodium Chloride 0.9% 10 ML Syringe FLUSH PRN (07:45)
[2024-03-03] MEDS: Lactated Ringers 1,000 ML IV SCH (08:16)
[2024-03-03] MEDS: Simethicone Drops 40 MG/0.6 ML 30 ML Bottle ONE (09:01)
[2024-03-03 09:58] VITALS: PULSE 69
[2024-03-03 10:22] VITALS: BP 104/59
== END 2024-03-03 10:40 | disposition home or self-care (01) ==
LOC: FB.SDS 07:28
PROVIDERS: ATTEND Surgery
DX: Z12.11 Encounter for screening for malignant neoplasm of colon (principal); K57.30 Diverticulosis of large intestine without perforation or abscess without bleeding; F32.A Depression, unspecified; F41.1 Generalized anxiety disorder; Z79.899 Other long term (current) drug therapy
CPT/HCPCS: A9270; G0121; J2704; J7120; 00811